=== PATIENT | male | born 1950 | race Caucasian/White ===

== ENCOUNTER 2017-04-05 13:54 | Emergency (ER) | payer BC ==
--- NOTE | 2017-04-05 15:00 | ERPHSYRPT ---
- History of Present Illness Time Seen by Provider: 04/05/17 14:57 Historian: patient Exam Limitations: no limitations Patient Subjective Stated Complaint: Pt states "I have a gallstone and I was going to go to Dr. pierre on friday about it. I have been up since 230 this morning vomiting and having abdominal pain." Triage Nursing Assessment: Pt alert and oriented X 3, skin pwd. Pt grimacing, has general weakness, nausea. no apparent respiratory distress. Physician History: 66-year-old white male arrives with complaint of right upper quadrant pain nausea vomiting symptoms since 2:30 this morning. Patient states he was recently worked up. He is supposed to see Dr. Pierre secondary to gallbladder problems he states he has had a CAT scan and an ultrasound. Past medical history includes COPD, arrhythmia, hypercholesterolemia, high blood pressure, myocardial infarction, rheumatoid arthritis, anxiety, depression , amyloidosis, pacer defibrillator. Past surgical history cardiac catheter, cardiac stent, pacer defibrillator, femoropopliteal bypass Timing/Duration: other (symptoms have been going on for several weeks, however recurred this morning at 2:30 AM) Activities at Onset: none Quality: cramping Abdominal Pain Onset Location: RUQ Severity of Pain-Max: moderate Severity of Pain-Current: moderate Modifying Factors: Improves With: nothing Associated Symptoms: nausea, vomiting, No back, No chest pain, No diaphoresis, No diarrhea, No fever/chills, No fatigue, No headache, No heartburn, No loss of appetite, No neck pain, No rash, No shortness of breath, No syncope, No testicular pain Previous symptoms: same symptoms as today Allergies/Adverse Reactions: cephalexin monohydrate [From Keflex] Allergy (Verified 05/18/13 16:48) Itching miconazole nitrate [From Neosporin AF] Allergy (Verified 05/18/13 16:48) Itching Home Medications: Bumetanide 1 mg [Bumex 1 mg] 1 mg PO UD 05/18/13 [History] Carvedilol 6.25 mg [Coreg 6.25 MG] 6.25 mg PO BID 05/18/13 [History] Lisinopril [Zestril] 2.5 mg PO DAILY 05/18/13 [History] Pantoprazole 40 mg [Protonix 40 mg IV] 40 mg PO DAILY 05/18/13 [History] Potassium Chloride 10 meq PO UD 05/18/13 [History] Aspirin [Aspirin EC] 81 mg PO DAILY 01/31/16 [History] Etanercept [Enbrel Sureclick] 50 mg SQ WEEKLY 01/31/16 [History] Folic Acid 1 mg PO DAILY 01/31/16 [History] Methotrexate Sodium [Methotrexate] 2.5 mg PO WEEKLY 01/31/16 [History] Rivaroxaban [Xarelto] 20 mg PO DAILY 04/05/17 [History] Hx Tetanus, Diphtheria Vaccination/Date Given: Yes Hx Influenza Vaccination/Date Given: Yes Hx Pneumococcal Vaccination/Date Given: Yes Immunizations Up to Date: Yes - Review of Systems Constitutional: No Fever, No Chills Eyes: No Symptoms Ears, Nose, & Throat: No Symptoms Respiratory: No Cough, No Dyspnea Cardiac: No Chest Pain, No Edema, No Syncope Abdominal/Gastrointestinal: Abdominal Pain, Nausea, Vomiting, No Diarrhea, No Constipation, No Hematemesis, No Hematochezia, No Melena, No Dysphagia, No Appetite Changes Genitourinary Symptoms: No Dysuria Musculoskeletal: No Back Pain, No Neck Pain Skin: No Rash Neurological: No Dizziness, No Focal Weakness, No Sensory Changes Psychological: No Symptoms Endocrine: No Symptoms All Other Systems: Reviewed and Negative - Past Medical History Pertinent Past Medical History: Yes Neurological History: No Pertinent History ENT History: No Pertinent History Cardiac History: Arrhythmia, High Cholesterol, Hypertension, Myocardial Infarction ([place]) Respiratory History: COPD, Other Endocrine Medical History: No Pertinent History Musculoskeletal History: Rheumatoid Arthritis GI Medical History: No Pertinent History History: No Pertinent History Psycho-Social History: Anxiety, Depression Male Reproductive Disorders: No Pertinent History Other Medical History: AMALOIDOSIS; DEFIBRILATOR - Past Surgical History Past Surgical History: Yes Neuro Surgical History: No Pertinent History Cardiac: Cardiac Catheterization, Cardiac Stent, Internal Defibrillator Respiratory: No Pertinent History Genitourinary: No Pertinent History Musculoskeletal: Other Male Surgical History: No Pertinent History Other Surgical History: FEM POP BYPASS - Social History Smoking Status: Former smoker Exposure to second hand smoke: No Drug Use: none Patient Lives Alone: No - Nursing Vital Signs Nursing Vital Signs: Initial Vital Signs Temperature 99.4 F 04/05/17 14:07 Pulse Rate 118 H 04/05/17 14:07 Respiratory Rate 20 04/05/17 14:07 Blood Pressure 106/63 04/05/17 14:07 O2 Sat by Pulse Oximetry 95 04/05/17 14:07 Pain Scale Pain Intensity 2 - Physical Exam General Appearance: mild distress Eye Exam: PERRL/EOMI, eyes nml inspection Ears, Nose, Throat Exam: normal ENT inspection, pharynx normal, moist mucous membranes Neck Exam: normal inspection, non-tender, supple, full range of motion Respiratory Exam: normal breath sounds, lungs clear, No respiratory distress Cardiovascular Exam: regular rate/rhythm, normal heart sounds Gastrointestinal/Abdomen Exam: soft, normal bowel sounds, tenderness (right upper quadrant tenderness) Back Exam: normal inspection, normal range of motion, No CVA tenderness, No vertebral tenderness Extremity Exam: normal inspection, normal range of motion, pelvis stable Neurologic Exam: alert, oriented x 3, cooperative, normal mood/affect, nml cerebellar function, sensation nml, No motor deficits Skin Exam: normal color, warm, dry SpO2 Interpretation: normal (95%) SpO2: 95 Oxygen Delivery: Room Air - Course Nursing assessment & vital signs reviewed: Yes EKG Interpreted by Me: RATE (98 bpm), Sinus Rhythm, NORMAL AXIS, Left Bolt Deviation, LAFB, Right Bundle Branch Block, Other (EKG sinus rhythm, 98 bpm, left axis deviation, complete right bundle branch block no acute ST or T wave changes a January 30, 2013) - Radiology Exams Chest X-ray Interpretation: Interpreted by me, Other (no acute disease process noted) Ordered Tests: Active Orders 24 hr Category Date Time Status C Unix Developer STAT Care 04/05/17 16:18 Active EKG-ER Only STAT Care 04/05/17 17:12 Active IV Insertion STAT Care 04/05/17 14:56 Active CHEST 1 VIEW (PORTABLE) Stat Exams 04/05/17 17:13 Taken AMYLASE Stat Lab 04/05/17 14:56 Completed CBC W DIFF Stat Lab 04/05/17 14:56 Completed CMP Stat Lab 04/05/17 14:56 Completed LIPASE Stat Lab 04/05/17 14:56 Completed Manual Differential NC Stat Lab 04/05/17 14:56 Completed UA W/RFX UR CULTURE Stat Lab 04/05/17 14:56 Ordered Medication Summary Generic Name Dose Route Start Last Admin Trade Name Freq PRN Reason Stop Dose Admin Sodium Chloride 1,000 mls @ 150 mls/hr 04/05/17 17:15 04/05/17 17:33 Sodium Chloride 0.9% 1000 Ml IV 05/05/17 17:14 150 mls/hr .Q6H40M JOSE CARLOS Administration Discontinued Medications Generic Name Dose Route Start Last Admin Trade Name Morgan PRN Reason Stop Dose Admin Sodium Chloride 1,000 mls @ 999 mls/hr 04/05/17 14:56 04/05/17 15:12 Sodium Chloride 0.9% 1000 Ml IV 04/05/17 15:56 999 mls/hr .Q1H1M STA Administration Sodium Chloride Confirm 04/05/17 15:07 Sodium Chloride 0.9% 1000 Ml Administered 04/05/17 15:08 Dose 1,000 mls @ ud .ROUTE .STK-MED ONE Sodium Chloride 1,000 mls @ 999 mls/hr 04/05/17 16:19 04/05/17 16:25 Sodium Chloride 0.9% 1000 Ml IV 04/05/17 17:19 999 mls/hr .Q1H1M STA Administration Sodium Chloride Confirm 04/05/17 16:19 Sodium Chloride 0.9% 1000 Ml Administered 04/05/17 16:20 Dose 1,000 mls @ ud .ROUTE .STK-MED ONE Morphine Sulfate 4 mg 04/05/17 14:56 04/05/17 15:12 Morphine Sulfate 4 Mg Inj IV 04/05/17 14:57 4 mg STAT ONE Administration Morphine Sulfate Confirm 04/05/17 15:07 Morphine Sulfate 4 Mg Inj Administered 04/05/17 15:08 Dose 4 mg .ROUTE .STK-MED ONE Ondansetron HCl 4 mg 04/05/17 14:56 04/05/17 15:12 Zofran 4 Mg/2 Ml Vial IV 04/05/17 14:57 4 mg STAT ONE Administration Ondansetron HCl Confirm 04/05/17 15:07 Zofran 4 Mg/2 Ml Vial Administered 04/05/17 15:08 Dose 4 mg .ROUTE .STK-MED ONE Lab/Rad Data: Laboratory Result Diagrams 04/05/17 14:56 04/05/17 14:56 Laboratory Results 04/05/17 04/05/17 Range/Units 14:56 14:56 WBC 13.1 H (4.0-10.5) K/mm3 RBC 4.17 (4.1-5.6) M/mm3 Hgb 13.4 (12.5-18.0) gm/dl Hct 39.2 L (42-50) % MCV 94.0 (78-100) fl MCH 32.1 H (26-32) pg MCHC 34.2 (32-36) g/dl RDW 12.9 (11.5-14.0) % Plt Count 172 (150-450) K/mm3 MPV 10.5 H (6-9.5) fl Segmented Neutrophils 97 H (36.-66.) % Lymphocytes (Manual) 3 L (24-44) % Differential Comment NORMAL Platelet Estimate NORMAL (NORMAL) Sodium 138 (136-145) mEq/L Potassium 3.8 (3.5-5.1) mEq/L Chloride 105 (98-107) mEq/L Carbon Dioxide 22.2 (21-32) mEq/L Anion Gap 14.6 (5-15) MEQ/L BUN 13 (9-20) mg/dL Creatinine 1.35 H (0.55-1.30) mg/dl Estimated GFR 57 ML/MIN Glucose 137 H (70-110) MG/DL Calcium 9.2 (8.5-10.1) mg/dL Total Bilirubin 3.40 H (0.2-1.0) mg/dL AST 400 H (15-37) U/L ALT 532 H (12-78) U/L Alkaline Phosphatase 209 H (46-116) U/L Serum Total Protein 6.4 (6.4-8.2) gm/dL Albumin 3.8 (3.4-5.0) g/dL Amylase 1493 H (25-115) U/L Lipase 81229 H (73-393) U/L - Progress Progress: improved Progress Note: 04/05/17 16:14 This 66-year-old white male with a history of epigastric pain symptoms since 2: 30 this morning. The patient had had of previous gallbladder ultrasound on the of this month which was suspicious for chronic cholecystitis. He also had had a CT of the abdomen which did not well visualize the pancreas approximately 2 days ago. He is complaining of pain in the right upper quadrant that he has had some nausea vomiting. Patient does have a history of COPD arrhythmia hypercholesterolemia high blood pressure myocardial infarction rheumatoid arthritis he has a history of defibrillator. Patient does look to be fairly comfortable patient's vital signs of temp 99 4 pulse 118 respirations 20 blood pressure 106/63, Patient has an amylase of 1493 a lipase of 19,371 Total bilirubin is 3.4 Patient's white count is 13.1 hemoglobin 13.4 hematocrit 39.2 platelets 192 Chemistry sodium 138 potassium 3.8 chloride 105 bicarbonate 22.2 BUN 13 creatinine 1.35 glucose 137/ Was given morphine 4 mg IV also given 1 L of normal saline Will plan on a second liter of normal saline. Patient states that he will get his hospitalized he wants to go where his cardiologists are at Will go ahead and contact [facility] in [place] for transfer. 04/05/17 17:24 I discussed the case with Dr. Bower, and at [facility](Dr. Santos id s the oracle database developer at [facility] patient was accepted to [facility] by Dr. Santos ) Patient has been given to the liters of normal saline he will be switched to IV normal saline at -150 mL per hour. Blood pressure 94/56. - Departure Time of Disposition: 18:58 Departure Disposition: Transfer ([facility]) Clinical Impression: Right upper quadrant pain Pancreatitis Qualifiers: Chronicity: acute Pancreatitis type: other Acute pancreatitis complication: unspecified Qualified Code(s): K85.80 - Other acute pancreatitis without necrosis or infection Condition: Fair Critical Care Time: No Referrals: JARON PIERRE [Primary Care Provider] -
[2017-04-05] MEDS ORDERED: MORPHINE SULFATE 4 MG INJ ONE (15:07)
[2017-04-05] MEDS ORDERED: Sodium Chloride 0.9% 1000 ML 1,000 ML ONE ×3 (15:07→17:32)
[2017-04-05] MEDS ORDERED: Zofran 4 MG/2 ML VIAL ONE (15:07)
[2017-04-05 15:09] LABS: Granulocyte Absolute (ANC) 12.43 (1.4-6.9); Hematocrit 39.2 % (42-50); Hemoglobin 13.4 gm/dl (12.5-18.0); Mean Corpuscular Hemoglobin 32.1 pg (26-32); Mean Corpuscular Hgb Concent. 34.2 g/dl (32-36); Mean Platelet Volume 10.5 fl (6-9.5); Platelet Count 172 K/mm3 (150-450); Red Blood Count 4.17 M/mm3 (4.1-5.6); Red Cell Distribution Width 12.9 % (11.5-14.0); White Blood Count 13.1 K/mm3 (4.0-10.5)
[2017-04-05] MEDS: Sodium Chloride 0.9% 1000 ML 1,000 ML IV STA ×2 (15:12→16:25)
[2017-04-05] MEDS: MORPHINE SULFATE 4 MG INJ IV ONE (15:12)
[2017-04-05] MEDS: Zofran 4 MG/2 ML VIAL IV ONE (15:12)
[2017-04-05 15:20] LABS: ALBUMIN 3.8 g/dL (3.4-5.0); ANION GAP 14.6 MEQ/L (5-15); BILIRUBIN,TOTAL 3.4 mg/dL (0.2-1.0); Calcium 9.2 mg/dL (8.5-10.1); Carbon Dioxide 22.2 mEq/L (21-32); Creatinine 1 1.35 mg/dl (0.55-1.30); Potassium 3.8 mEq/L (3.5-5.1); Total Protein 6.4 gm/dL (6.4-8.2)
[2017-04-05 15:51] LABS: Lymphocytes 3 % (24-44); Neutrophils 97 % (36.-66.); Platelet Estimate NORMAL (NORMAL); Total Cells Counted 100
[2017-04-05] MEDS: Sodium Chloride 0.9% 1000 ML 1,000 ML IV SCH (17:33)
[2017-04-05 18:46] VITALS: BP 93/59; PULSE 94
[2017-04-05 18:59] VITALS: O2SAT 95
[2017-04-05 19:08] LABS: Appearance CLEAR (CLEAR); Leukocyte Esterase NEGATIVE (NEGATIVE); Nitrite NEGATIVE (NEGATIVE); Protein,Urine Dip NEGATIVE (Negative)
[2017-04-05 19:09] LABS: Bilirubin NEGATIVE (NEGATIVE); Blood NEGATIVE Ery/ul (0-5); Glucose NEGATIVE (NEGATIVE); Ketones NEGATIVE (NEGATIVE); Urobilinogen NORMAL mg/dL (0-1)
--- NOTE | 2017-04-05 20:40 | XRAY ---
Indication: Weakness. Comparison: March 28, 2017. Portable chest remains clear. Heart and mediastinal structures within normal limits again with left-sided AICD. No new/acute findings. Impression: Stable nonacute chest.
== END 2017-04-05 19:02 | disposition short-term general hospital (02) ==
LOC: ED 13:54
DX: R10.11 Right upper quadrant pain (principal); K85.80 Other acute pancreatitis without necrosis or infection; J44.9 Chronic obstructive pulmonary disease, unspecified; E78.00 Pure hypercholesterolemia, unspecified; I10 Essential (primary) hypertension; I25.2 Old myocardial infarction; M06.9 Rheumatoid arthritis, unspecified; F41.8 Other specified anxiety disorders; Z79.01 Long term (current) use of anticoagulants; Z79.899 Other long term (current) drug therapy
CPT/HCPCS: 36000; 36415; 71045; 80053; 81002; 82150; 83690; 85025; 93005; 93041; 96360; 96361; 96374; 96375; 99285; J2270; J2405

== ENCOUNTER 2017-05-15 15:52 | Inpatient (IN) | payer MEDICARE ==
--- NOTE | 2017-05-15 17:09 | XRAY ---
Indication: Fever. Comparison: April 05, 2017. PA/lateral chest hyperinflated and clear. Heart is not enlarged with stable left-sided AICD. Bony thorax intact again with mild degenerative changes. Impression: Nonacute hyperinflated chest.
--- NOTE | 2017-05-15 17:21 | ERPHSYRPT ---
- History of Present Illness Time Seen by Provider: 05/15/17 16:12 Source: patient, family () Patient Subjective Stated Complaint: pt stated that his had explained to his valery doctor that he was chilling and didn't feel well-states that his valery doctor had said that he was full of infection and needed to come here so we could call his valery doctor-pt had an upper scope done on -pt denies pain -denies n/v/d-unsure of fever-denies dizziness or loc-denies dizziness-denies loss of appetite or fluid intake Triage Nursing Assessment: pt pale warm and [id number] talkative with no resp distress noted-abd soft and nontender to palp-pt would not allow further physical assessment-stated that he didn't want testing he wanted his valery doctor called Physician History: CC: malaise Hx: 67 y/o patient of Dr Pierre and Dr Chavez ([phone]). He had gallstone pancreatitis in March. Went to [facility]. Had ERCP with stent placement and subsequent cholecystectomy. He went last week on to have pancreatitic stent removed and had esophageal biopsy. He has not felt well since the stent removal. He has low grade fever to 100.5. He has malaise. Some cough. No vomiting or diarrhea. He spoke to office today and they sent him here for evaluation of infection. also states BP has been low. He had BMP earlier today as scheduled thru cardiology. He started entresto recently. Allergies/Adverse Reactions: cephalexin monohydrate [From Keflex] Allergy (Verified 05/15/17 16:31) Itching miconazole nitrate [From Neosporin AF] Allergy (Verified 05/15/17 16:31) Itching Home Medications: Bumetanide 1 mg [Bumex 1 mg] 1 mg PO UD 05/18/13 [History] Carvedilol 6.25 mg [Coreg 6.25 MG] 6.25 mg PO BID 05/18/13 [History] Lisinopril [Zestril] 2.5 mg PO DAILY 05/18/13 [History] Pantoprazole 40 mg [Protonix 40 mg IV] 40 mg PO DAILY 05/18/13 [History] Potassium Chloride 10 meq PO UD 05/18/13 [History] Aspirin [Aspirin EC] 81 mg PO DAILY 01/31/16 [History] Etanercept [Enbrel Sureclick] 50 mg SQ WEEKLY 01/31/16 [History] Folic Acid 1 mg PO DAILY 01/31/16 [History] Methotrexate Sodium [Methotrexate] 2.5 mg PO WEEKLY 01/31/16 [History] Rivaroxaban [Xarelto] 20 mg PO DAILY 04/05/17 [History] Hx Tetanus, Diphtheria Vaccination/Date Given: Yes Hx Influenza Vaccination/Date Given: Yes Hx Pneumococcal Vaccination/Date Given: Yes Immunizations Up to Date: Yes - Review of Systems Constitutional: Fever, Chills, Fatigue, Malaise Eyes: No Symptoms Ears, Nose, & Throat: No Symptoms Respiratory: Cough, No Dyspnea Cardiac: No Chest Pain Abdominal/Gastrointestinal: No Abdominal Pain, No Nausea, No Vomiting, No Diarrhea Genitourinary Symptoms: No Dysuria Skin: No Rash Neurological: No Headache All Other Systems: Reviewed and Negative - Past Medical History Pertinent Past Medical History: Yes Neurological History: No Pertinent History ENT History: No Pertinent History Cardiac History: Arrhythmia, High Cholesterol, Hypertension, Myocardial Infarction ([place]) Respiratory History: COPD, Other Endocrine Medical History: No Pertinent History Musculoskeletal History: Rheumatoid Arthritis GI Medical History: Pancreatitis History: No Pertinent History Psycho-Social History: Anxiety, Depression Male Reproductive Disorders: No Pertinent History Other Medical History: Amyloid. AICD. RA on methrotrexate. CAD post stenting - Past Surgical History Past Surgical History: Yes Neuro Surgical History: No Pertinent History Cardiac: Cardiac Catheterization, Cardiac Stent, Internal Defibrillator Respiratory: No Pertinent History Genitourinary: No Pertinent History Musculoskeletal: Other Male Surgical History: No Pertinent History Other Surgical History: FEM POP BYPASS - Social History Smoking Status: Former smoker Exposure to second hand smoke: No Drug Use: none Patient Lives Alone: No - Nursing Vital Signs Nursing Vital Signs: Initial Vital Signs Temperature 98.9 F 05/15/17 16:11 Pulse Rate 89 05/15/17 16:11 Respiratory Rate 18 05/15/17 16:11 Blood Pressure 104/65 05/15/17 16:11 O2 Sat by Pulse Oximetry 97 05/15/17 16:11 Pain Scale Pain Intensity 0 - Physical Exam General Appearance: alert Eye Exam: PERRL/EOMI Ears, Nose, Throat Exam: normal ENT inspection, dry mucous membranes Neck Exam: normal inspection, non-tender, supple Respiratory Exam: normal breath sounds Cardiovascular Exam: regular rate/rhythm, No murmur Gastrointestinal/Abdomen Exam: soft, No tenderness, No distention, No mass, No guarding Male Genitalia Exam: normal genitalia Extremity Exam: normal inspection, normal range of motion Neurologic Exam: alert, oriented x 3, cooperative, medical delivery driver II-XII nml as tested, sensation nml, No motor deficits Skin Exam: warm, dry, No rash SpO2 Interpretation: normal SpO2: 97 Oxygen Delivery: Room Air - Course Nursing assessment & vital signs reviewed: Yes - Radiology Exams cxr X-ray Interpretation: Teleradiologist Report, Negative Ordered Tests: Active Orders 24 hr Category Date Time Status Clean Catch Urine Specimen STAT Care 05/15/17 16:45 Active IV Insertion STAT Care 05/15/17 16:45 Active Rectal Temperature STAT Care 05/15/17 16:46 Active CHEST 2 VIEWS (PA AND LAT) Stat Exams 05/15/17 16:46 Completed BLOOD CULTURE Stat Lab 05/15/17 17:13 Ordered CBC W DIFF Stat Lab 05/15/17 17:13 Completed CULTURE,URINE Stat Lab 05/15/17 18:30 Received Hepatic Function Panel Stat Lab 05/15/17 17:13 Completed LIPASE Stat Lab 05/15/17 17:13 Completed Lactic Acid Stat Lab 05/15/17 17:18 Completed UA W/ MICROSCOPIC Stat Lab 05/15/17 18:30 Completed Medication Summary Generic Name Dose Route Start Last Admin Trade Name Freq PRN Reason Stop Dose Admin Sodium Chloride 1,000 mls @ 150 mls/hr 05/15/17 17:30 05/15/17 19:32 Sodium Chloride 0.9% 1000 Ml IV 06/14/17 17:29 150 mls/hr .Q6H40M JOSE CARLOS Administration Metronidazole 500 mg in 100 mls @ 200 mls/hr 05/15/17 19:34 Flagyl 500 Mg Ivpb IV 05/15/17 20:03 STAT STA Levofloxacin/Dextrose 750 mg in 150 mls @ 100 mls/hr 05/15/17 19:34 Levofloxacin 750mg/150ml D5w IV 05/15/17 21:03 STAT STA Discontinued Medications Generic Name Dose Route Start Last Admin Trade Name Freq PRN Reason Stop Dose Admin Acetaminophen 650 mg 05/15/17 19:28 05/15/17 19:31 Tylenol 325 Mg PO 05/15/17 19:29 650 mg STAT ONE Administration Acetaminophen Confirm 05/15/17 19:30 Tylenol 325 Mg Administered 05/15/17 19:31 Dose 650 mg .ROUTE .STK-MED ONE Sodium Chloride Confirm 05/15/17 17:30 Sodium Chloride 0.9% 1000 Ml Administered 05/15/17 17:31 Dose 1,000 mls @ ud .ROUTE .STK-MED ONE Sodium Chloride Confirm 05/15/17 19:30 Sodium Chloride 0.9% 1000 Ml Administered 05/15/17 19:31 Dose 1,000 mls @ ud .ROUTE .STK-MED ONE Lab/Rad Data: Laboratory Result Diagrams 05/15/17 17:13 Laboratory Results 05/15/17 05/15/17 05/15/17 Range/Units 18:30 17:18 17:13 WBC (4.0-10.5) K/mm3 RBC (4.1-5.6) M/mm3 Hgb (12.5-18.0) gm/dl Hct (42-50) % MCV (78-100) fl MCH (26-32) pg MCHC (32-36) g/dl RDW (11.5-14.0) % Plt Count (150-450) K/mm3 MPV (6-9.5) fl Gran % (36.0-66.0) % Lymphocytes % (24.0-44.0) % Monocytes % (0.0-12.0) % Eosinophils % (0.00-5.0) % Basophils % (0.0-0.4) % Basophils # (0-0.4) Lactic Acid 1.1 (0.4-2.0) Total Bilirubin 1.50 H (0.2-1.3) mg/d? Direct Bilirubin 0.4 (0.0-0.4) MG/DL AST 34 (17-59) U/L ALT 38 (0-50) U/L Alkaline Phosphatase 116 (38-126) U/L Serum Total Protein 6.3 (6.3-8.2) mg/dl Albumin 3.6 (3.5-5.0) g/dl Lipase 52 (23-300) U/L Ur Collection Type CCMS Urine Color YELLOW (YELLOW) Urine Appearance CLEAR (CLEAR) Urine pH 5.0 (5-6) Ur Specific [place] 1.020 (1.005-1.025) Urine Protein TRACE (Negative) Urine Ketones NEGATIVE (NEGATIVE) Urine Blood TRACE LYSED (0-5) Bandar/ul Urine Nitrite NEGATIVE (NEGATIVE) Urine Bilirubin NEGATIVE (NEGATIVE) Urine Urobilinogen NORMAL (0-1) mg/dL Ur Leukocyte Esterase NEGATIVE (NEGATIVE) Urine Microscopic RBC 0-2 (0-2) /HPF Urine Microscopic WBC 0-2 (0-5) /HPF Ur Epithelial Cells FEW (FEW) /HPF Hyaline Casts 0-2 (0-2) /LPF Urine Culture Reflexed YES (NO) Urine Glucose NEGATIVE (NEGATIVE) mg/dL Specimen Received [id number] 05/15/17 Range/Units 17:13 WBC 8.2 (4.0-10.5) K/mm3 RBC 3.56 L (4.1-5.6) M/mm3 Hgb 11.5 L (12.5-18.0) gm/dl Hct 33.2 L (42-50) % MCV 93.3 (78-100) fl MCH 32.3 H (26-32) pg MCHC 34.6 (32-36) g/dl RDW 14.0 (11.5-14.0) % Plt Count 119 L (150-450) K/mm3 MPV 10.6 H (6-9.5) fl Gran % 71.2 H (36.0-66.0) % Lymphocytes % 12.5 L (24.0-44.0) % Monocytes % 15.7 H (0.0-12.0) % Eosinophils % 0.5 (0.00-5.0) % Basophils % 0.1 (0.0-0.4) % Basophils # 0.01 (0-0.4) Lactic Acid (0.4-2.0) Total Bilirubin (0.2-1.3) mg/d? Direct Bilirubin (0.0-0.4) MG/DL AST (17-59) U/L ALT (0-50) U/L Alkaline Phosphatase (38-126) U/L Serum Total Protein (6.3-8.2) mg/dl Albumin (3.5-5.0) g/dl Lipase (23-300) U/L Ur Collection Type Urine Color (YELLOW) Urine Appearance (CLEAR) Urine pH (5-6) Ur Specific [place] (1.005-1.025) Urine Protein (Negative) Urine Ketones (NEGATIVE) Urine Blood (0-5) Bandar/ul Urine Nitrite (NEGATIVE) Urine Bilirubin (NEGATIVE) Urine Urobilinogen (0-1) mg/dL Ur Leukocyte Esterase (NEGATIVE) Urine Microscopic RBC (0-2) /HPF Urine Microscopic WBC (0-5) /HPF Ur Epithelial Cells (FEW) /HPF Hyaline Casts (0-2) /LPF Urine Culture Reflexed (NO) Urine Glucose (NEGATIVE) mg/dL Specimen Received - Progress Progress Note: 05/15/17 19:16 Pt is febrile. He feels better after IVF 1 L NS. BP low side. BMP earlier today reviewed. Will page Dr Reyes for his recommendations. 05/15/17 19:[address] Reyes who advised admit for IV abtx pending cultures. Spoke to Dr Abdiaziz Pierre and will place on levaquin and flagyl as he is allergic to keflex. Will also send flu panel. Discussed with : George Will see patient in: hospital (observation) Counseled pt/family regarding: lab results, diagnosis, need for follow-up, rad results - Departure Time of Disposition: 19:36 Departure Disposition: Observation Clinical Impression: Fever, Hyponatremia Condition: Fair Critical Care Time: No Referrals: JARON PIERRE [Primary Care Provider] -
[2017-05-15] MEDS ORDERED: Sodium Chloride 0.9% 1000 ML 1,000 ML ONE ×2 (17:30→19:30)
[2017-05-15] MEDS: Sodium Chloride 0.9% 1000 ML 1,000 ML IV SCH ×2 (17:42→19:32)
[2017-05-15 17:44] LABS: BASOPHIL % 0.1 % (0.0-0.4); Basophil (Absolute #) 0.01 (0-0.4); Eosinophil % 0.5 % (0.00-5.0); Eosinophil (Absolute #) 0.04 (0-0.5); Granulocyte Absolute (ANC) 5.82 (1.4-6.9); Granulocytes % 71.2 % (36.0-66.0); Hematocrit 33.2 % (42-50); Hemoglobin 11.5 gm/dl (12.5-18.0); Lymphocyte (Absolute #) 1.02 (1.0-4.6); Lymphocytes % 12.5 % (24.0-44.0); Mean Cell Volume 93.3 fl (78-100); Mean Corpuscular Hemoglobin 32.3 pg (26-32); Mean Corpuscular Hgb Concent. 34.6 g/dl (32-36); Mean Platelet Volume 10.6 fl (6-9.5); Monocyte (Absolute #) 1.28 (0.0-1.3); Monocytes % 15.7 % (0.0-12.0); Platelet Count 119 K/mm3 (150-450); Red Blood Count 3.56 M/mm3 (4.1-5.6); White Blood Count 8.2 K/mm3 (4.0-10.5)
[2017-05-15 17:53] LABS: ALBUMIN 3.6 g/dl (3.5-5.0); BILIRUBIN,TOTAL 1.5 mg/d? (0.2-1.3); Direct Bilirubin 0.4 MG/DL (0.0-0.4); Total Protein 6.3 mg/dl (6.3-8.2)
[2017-05-15 18:55] LABS: Appearance CLEAR (CLEAR); Bilirubin NEGATIVE (NEGATIVE); Glucose NEGATIVE (NEGATIVE); Ketones NEGATIVE (NEGATIVE); Leukocyte Esterase NEGATIVE (NEGATIVE); Nitrite NEGATIVE (NEGATIVE); Protein,Urine Dip TRACE (Negative); Urobilinogen NORMAL mg/dL (0-1)
[2017-05-15 18:56] LABS: Blood TRACE LYSED Ery/ul (0-5)
[2017-05-15 19:02] LABS: Epithelial Cells FEW /HPF (FEW); Hyaline Casts 0-2 /LPF (0-2); WBC 0-2 /HPF (0-5)
[2017-05-15] MEDS ORDERED: TYLENOL 325 MG PO ONE (19:28)
[2017-05-15] MEDS ORDERED: TYLENOL 325 MG ONE (19:30)
[2017-05-15] MEDS ORDERED: LEVOFLOXACIN 750MG/150ML D5W 750 MG/150 ML BAG IV STA (19:34)
[2017-05-15] MEDS ORDERED: FLAGYL 500 MG IVPB 500 MG/100 ML BAG IV STA (19:34)
[2017-05-15] MEDS ORDERED: FLAGYL 500 MG IVPB 500 MG/100 ML BAG IV ONE (19:37)
[2017-05-15] MEDS ORDERED: LEVOFLOXACIN 750MG/150ML D5W 750 MG/150 ML BAG IV ONE (20:08)
[2017-05-15] MEDS ORDERED: TYLENOL 325 MG PO PRN (20:22)
[2017-05-15] MEDS: Pepcid 20 MG VIAL IV SCH (21:52)
[2017-05-15] MEDS: Ambien 5 MG Tablet PO SCH (22:16)
[2017-05-15] MEDS: FLAGYL 500 MG IVPB 500 MG/100 ML BAG IV SCH (23:53)
[2017-05-16] MEDS: Sodium Chloride 0.9% 1000 ML 1,000 ML IV SCH ×2 (05:09→17:08)
[2017-05-16] MEDS: FLAGYL 500 MG IVPB 500 MG/100 ML BAG IV SCH ×4 (05:26→23:43)
[2017-05-16 05:33] LABS: BASOPHIL % 0.1 % (0.0-0.4); Basophil (Absolute #) 0.01 (0-0.4); Eosinophil % 0.4 % (0.00-5.0); Eosinophil (Absolute #) 0.03 (0-0.5); Granulocytes % 72.3 % (36.0-66.0); Hematocrit 30.3 % (42-50); Hemoglobin 10.3 gm/dl (12.5-18.0); Lymphocyte (Absolute #) 0.63 (1.0-4.6); Lymphocytes % 9.1 % (24.0-44.0); Mean Cell Volume 93.2 fl (78-100); Mean Platelet Volume 10.7 fl (6-9.5); Monocyte (Absolute #) 1.25 (0.0-1.3); Monocytes % 18.1 % (0.0-12.0); Platelet Count 98 K/mm3 (150-450); Red Blood Count 3.25 M/mm3 (4.1-5.6); Red Cell Distribution Width 13.9 % (11.5-14.0); White Blood Count 6.9 K/mm3 (4.0-10.5)
[2017-05-16 05:34] LABS: Mean Corpuscular Hemoglobin 31.6 pg (26-32)
[2017-05-16 06:04] LABS: ALBUMIN 2.8 g/dl (3.5-5.0); ALKALINE PHOSPHATASE 103 U/L (38-126); BLOOD UREA NITROGEN 11 mg/dl (9-20); CHLORIDE 99 mEq/L (98-107); Calcium 8.1 mg/dL (8.4-10.2); Carbon Dioxide 22 mmol/L (22-30); Creatinine 1 0.75 mg/dl (0.66-1.25); Glucose 110 mg/dL (74-106); SGOT/AST 28 U/L (17-59); SGPT/ALT 32 U/L (0-50); SODIUM 129 mmol/L (137-145); Total Protein 5.4 mg/dl (6.3-8.2)
[2017-05-16 06:29] LABS: Slide Review 1 YES
--- NOTE | 2017-05-16 09:55 | HP ---
HISTORY OF PRESENT ILLNESS: This is a 67 year-old patient of mine who presented to the emergency department yesterday afternoon. He reports that this past he had a stent removed by ERCP that had been placed at . He states he has felt bad since this Friday which would have been 05/09/2017. His legs felt like rubber and he was fatigued. He was unable to go to his granddaughter's ball game Friday but did go Friday. He reports Friday he picked up sticks in his yard and worked hard and had some chills. He reports a fever to 101F on Friday. I saw him in the clinic on Friday but he did not mention having had a fever. He just said his blood pressure had been running low but he had recently been started on Entresto and he felt fatigued. His called the doctor who did the ERCP on and they told her to bring him to the emergency department for fluids and antibiotic and so he was admitted through the emergency department last night. He reports that he feels better this morning. He was able to eat his breakfast although he has had decreased oral intake for the past week. He states he had some chills last night and required four blankets but better this a.m. REVIEW OF SYSTEMS: He feels like he will throw up if he eats anything. He reports his last stool was last night and was solid. He denied any loose stools. He denies any blood in his stool. He denies any abdominal pain. He reports his cough has been his regular cough since he first had his ERCP and was more hoarse since that happened. They report that during the ERCP he also had esophagus dilated and a biopsy taken as well as this stent taken out. He had a headache when he stood up yesterday but is better today. He was able to walk to the bathroom without any dizziness. They note that his Xarelto had been stopped only one to two days before the ERCP and was supposed to be stopped five days before ERCP but the doctor who did the ERCP knew this and he restarted it right afterwards. PAST MEDICAL HISTORY: Coronary artery disease with myocardial infarction in 2000. He sees Dr. Sosa. History of ischemic congestive cardiomyopathy. He has ICD placed. 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 Benson for. Amyloid of the skin. Gallstone, pancreatitis March 2017. Bilateral herpes keratitis early 2017. PAST SURGICAL HISTORY: Colonoscopy 2016 with diverticulosis and two polyps. Dr. Ireland did this and told him to repeat it in ten years. He had surgery for blockage in his leg. Cholecystectomy 04/09/2017. Liver biopsy 04/09/2017. He has a defibrillator and heart stent. MEDICATIONS: Aspirin 81 mg p.o. daily, Atorvastatin 40 mg daily, Bumex 1 mg every other day, carvedilol 12.5 mg p.o. b.i.d., etanercept 50 mg subcutaneously weekly, folic acid 1 tablet p.o. daily, methotrexate 2.5 mg tablet 8 tablets weekly on , pantoprazole 40 mg p.o. daily, potassium chloride 10 mEq daily, Xarelto 20 mg daily, Entresto 24 mg/26 mg 1 tablet p.o. b.i.d., Viagra as needed. Spironolactone 25 mg p.o. daily. ALLERGIES: CEPHALEXIN, MICONAZOLE. SOCIAL HISTORY: He quit smoking 01/16/2011. He is and lives with his spouse. He occasionally drinks alcohol. FAMILY HISTORY: His mother had rheumatoid arthritis and when she was 70. His father had myocardial infarction and at 59. PHYSICAL EXAMINATION: VITAL SIGNS: Temperature current 98.5F, temperature max 101.9F, heart rate 64 to 92, respiratory rate 16 to 20, blood pressure 95 to 116 over 55 to 65, weight 81.2 kg. Oxygen saturation 95 to 97% on room air. GENERAL: The patient is sitting up in bed in no acute distress. His daughter is at the bedside. CVS: He has an irregular-irregular rhythm. No murmurs, gallops or rubs are appreciated. CHEST: Clear to auscultation bilaterally. Equal breath sounds. ABDOMEN: Soft, nontender, nondistended with normal bowel sounds. EXTREMITIES: No clubbing, cyanosis or edema. He has +2 radial pulses bilaterally. SKIN: Warm, dry and intact. LABORATORY DATA AND TESTS: CBC his white blood cell count was 8,200 on admission and 6,900 this morning, hemoglobin 10.3. Sodium 129, bilirubin 1.4, total protein 5.4. UA was negative. He has a urine culture and blood culture in lab. He had slide review that stated the platelets appeared decreased. His PLT count was 98,000. His blood cultures on the gram stain said that they saw gram-positive clare. There is no ID or sensitivity on this culture. ASSESSMENT AND PLAN: 1) BACTEREMIA: Will continue with Levaquin and metronidazole. Continue monitoring him closely. I discussed this with the family that he should at least stay for 48 hours of IV antibiotics if not longer. 2) HISTORY OF CONGESTIVE HEART FAILURE. His blood pressure is currently at the low end of normal. 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 Will continue with Xarelto. 3) HISTORY OF ATRIAL FIBRILLATION: Management as above. 4) RECENT ERCP STENT REMOVED: Will continue with antibiotic. 5) WEIGHT LOSS: The family reports significant weight loss over the past year. We were trying to schedule at CT scan of his chest for screening for lung cancer as an outpatient but he has had these other more serious medical problems at this time. He has had a recent colonoscopy. I will try to obtain records from his doctors at [facility] about his recent liver biopsy and report of his biopsy of his stomach when he had the scope done recently. 6) DEEP VENOUS THROMBOSIS PROPHYLAXIS: He is already on Xarelto and will use FELA yoon.
[2017-05-16] MEDS ORDERED: LIPITOR 40MG PO SCH (10:00)
[2017-05-16] MEDS ORDERED: NON-FORMULARY ITEM (Potassium Chloride [Potassium Chloride] 10 MEQ) PO SCH (10:00)
[2017-05-16] MEDS ORDERED: PROTONIX 40 MG IV IV SCH (10:00)
[2017-05-16] MEDS: Protonix 40MG Tablet PO SCH (10:12)
[2017-05-16] MEDS: ZOCOR 20MG PO SCH (10:12)
[2017-05-16] MEDS: ECOTRIN 81 MG PO SCH (10:12)
[2017-05-16 10:13] LABS: INFLUENZA A NEGATIVE (NEGATIVE); INFLUENZA B NEGATIVE (NEGATIVE); RESPIRATORY SYNCTIAL VIRUS NEGATIVE (Negative)
[2017-05-16] MEDS: FOLATE 1 MG PO SCH (10:13)
[2017-05-16] MEDS: XARELTO 10 MG TABLET PO SCH (10:13)
[2017-05-16] MEDS: Klor Con 10 MEQ PO SCH (10:13)
[2017-05-16] MEDS: Pepcid 20 MG VIAL IV SCH ×2 (10:14→21:54)
[2017-05-16] MEDS: Nystatin SUSPENSION 60 ML PO SCH ×4 (10:14→21:49)
[2017-05-16] MEDS: Ambien 5 MG Tablet PO SCH (21:47)
[2017-05-16] MEDS: LEVOFLOXACIN 750MG/150ML D5W 750 MG/150 ML BAG IV SCH (21:47)
[2017-05-17 05:43] LABS: Basophil (Absolute #) 0 (0-0.4); Eosinophil % 0.8 % (0.00-5.0); Eosinophil (Absolute #) 0.05 (0-0.5); Granulocyte Absolute (ANC) 4.19 (1.4-6.9); Granulocytes % 67.2 % (36.0-66.0); Hematocrit 30.2 % (42-50); Hemoglobin 10.2 gm/dl (12.5-18.0); Lymphocyte (Absolute #) 0.92 (1.0-4.6); Lymphocytes % 14.8 % (24.0-44.0); Mean Cell Volume 94.4 fl (78-100); Mean Corpuscular Hgb Concent. 33.8 g/dl (32-36); Mean Platelet Volume 10.7 fl (6-9.5); Monocyte (Absolute #) 1.07 (0.0-1.3); Monocytes % 17.2 % (0.0-12.0); Platelet Count 100 K/mm3 (150-450); White Blood Count 6.2 K/mm3 (4.0-10.5)
[2017-05-17 05:46] LABS: Mean Corpuscular Hemoglobin 31.8 pg (26-32)
[2017-05-17] MEDS: FLAGYL 500 MG IVPB 500 MG/100 ML BAG IV SCH ×4 (05:52→23:41)
[2017-05-17] MEDS: Sodium Chloride 0.9% 1000 ML 1,000 ML IV SCH ×2 (05:55→17:26)
[2017-05-17 06:15] LABS: Iron 48 ug/dL (49-181)
[2017-05-17 06:17] LABS: ALBUMIN 2.9 g/dl (3.5-5.0); ALKALINE PHOSPHATASE 93 U/L (38-126); ANION GAP 13.8 MEQ/L (5-15); BLOOD UREA NITROGEN 6 mg/dl (9-20); CHLORIDE 101 mEq/L (98-107); Calcium 8.5 mg/dL (8.4-10.2); Carbon Dioxide 25 mmol/L (22-30); Creatinine 1 0.79 mg/dl (0.66-1.25); Glucose 107 mg/dL (74-106); Potassium 4.6 mmol/L (3.5-5.1); SGOT/AST 23 U/L (17-59); SGPT/ALT 29 U/L (0-50); SODIUM 136 mmol/L (137-145); Total Protein 5.5 mg/dl (6.3-8.2)
[2017-05-17 06:25] LABS: Iron Saturation 24 % (20-39); TIBC 202 ug/dl (261-497)
--- NOTE | 2017-05-17 08:32 | PCM.NOTE ---
Date and Time: 05/17/17828 Subjective Assessment: patient feels well today, no pain. denies nausea or vomiting. he feels weak but this is his only complaint. had low grade fever yesterday at 16:00 Objective Exam General Appearance: no apparent distress, alert Skin Exam: normal color, warm, dry Respiratory Exam: normal breath sounds, lungs clear, No respiratory distress Cardiovascular Exam: regular rate/rhythm, normal heart sounds Gastrointestinal/Abdomen Exam: soft, No tenderness, No mass Extremity Exam: normal inspection, normal range of motion OBJECTIVE DATA Vital Signs: Vital Signs - 24 hr Temp Pulse Resp BP Pulse Ox 05/17/17 07:19 98.2 F 78 18 109/60 94 L 05/17/17 04:00 20 05/17/17 03:39 97.9 F 80 19 113/63 95 05/17/17 00:00 98.7 F 87 16 112/62 93 L 05/16/17 20:00 98.5 F 87 18 110/63 98 05/16/17 16:00 100.4 F 93 H 18 118/68 96 05/16/17 11:37 98.1 F 89 18 110/63 97 Pain Assessment - Last Documented Pain Intensity 0 Pain Scale Used 0-10 Pain Scale Intake and Output: Intake & Output 05/14/17 05/15/17 05/16/17 05/17/17 11:59 11:59 11:59 11:59 Intake Total 3804 Output Total 1700 Balance 2104 Weight 80.1 kg Lab Results: Lab Results-Last 24 Hours 05/17/17 05/17/17 05/17/17 Range/Units 05:34 05:34 05:34 WBC 6.2 (4.0-10.5) K/mm3 RBC 3.20 L (4.1-5.6) M/mm3 Hgb 10.2 L (12.5-18.0) gm/dl Hct 30.2 L (42-50) % MCV 94.4 (78-100) fl MCH 31.8 (26-32) pg MCHC 33.8 (32-36) g/dl RDW 14.0 (11.5-14.0) % Plt Count 100 L (150-450) K/mm3 MPV 10.7 H (6-9.5) fl Gran % 67.2 H (36.0-66.0) % Lymphocytes % 14.8 L (24.0-44.0) % Monocytes % 17.2 H (0.0-12.0) % Eosinophils % 0.8 (0.00-5.0) % Basophils % 0.0 (0.0-0.4) % Basophils # 0 (0-0.4) Sodium 136 L (137-145) mmol/L Potassium 4.6 (3.5-5.1) mmol/L Chloride 101 (98-107) mEq/L Carbon Dioxide 25 (22-30) mmol/L Anion Gap 13.8 (5-15) MEQ/L BUN 6 L (9-20) mg/dl Creatinine 0.79 (0.66-1.25) mg/dl Estimated GFR > 60 ML/MIN Glucose 107 H (74-106) mg/dL Calcium 8.5 (8.4-10.2) mg/dL Iron 48 L (49-181) ug/dL TIBC 202 L (261-497) ug/dl Iron Saturation 24 (20-39) % Total Bilirubin 1.10 (0.2-1.3) mg/d? AST 23 (17-59) U/L ALT 29 (0-50) U/L Alkaline Phosphatase 93 (38-126) U/L Serum Total Protein 5.5 L (6.3-8.2) mg/dl Albumin 2.9 L (3.5-5.0) g/dl Assessment/Plan (1) Bacteremia Current Visit: No Status: Acute Assessment & Plan: GNR, hx of recent pancreatic duct stent. currently on Levaquin and Flagyl, awaiting blood culture results. Code(s): R78.81 - BACTEREMIA (2) Fever Current Visit: Yes Status: Acute Code(s): R50.9 - FEVER, UNSPECIFIED
[2017-05-17] MEDS: ECOTRIN 81 MG PO SCH (10:05)
[2017-05-17] MEDS: FOLATE 1 MG PO SCH (10:06)
[2017-05-17] MEDS: XARELTO 10 MG TABLET PO SCH (10:07)
[2017-05-17] MEDS: Nystatin SUSPENSION 60 ML PO SCH ×4 (10:07→21:38)
[2017-05-17] MEDS: Protonix 40MG Tablet PO SCH (10:07)
[2017-05-17] MEDS: Pepcid 20 MG VIAL IV SCH ×2 (10:07→21:37)
[2017-05-17] MEDS: ZOCOR 20MG PO SCH (10:08)
[2017-05-17] MEDS: LEVOFLOXACIN 750MG/150ML D5W 750 MG/150 ML BAG IV SCH (21:44)
[2017-05-17] MEDS: Ambien 5 MG Tablet PO SCH (21:45)
[2017-05-18] MEDS: FLAGYL 500 MG IVPB 500 MG/100 ML BAG IV SCH (05:53)
[2017-05-18] MEDS: Sodium Chloride 0.9% 1000 ML 1,000 ML IV SCH (05:55)
[2017-05-18 06:02] LABS: BASOPHIL % 0.3 % (0.0-0.4); Basophil (Absolute #) 0.02 (0-0.4); Eosinophil % 1.4 % (0.00-5.0); Eosinophil (Absolute #) 0.08 (0-0.5); Granulocytes % 68.7 % (36.0-66.0); Hematocrit 29.6 % (42-50); Hemoglobin 9.9 gm/dl (12.5-18.0); Lymphocyte (Absolute #) 0.97 (1.0-4.6); Lymphocytes % 16.6 % (24.0-44.0); Mean Cell Volume 94.9 fl (78-100); Mean Corpuscular Hemoglobin 31.7 pg (26-32); Mean Corpuscular Hgb Concent. 33.4 g/dl (32-36); Mean Platelet Volume 10.7 fl (6-9.5); Monocyte (Absolute #) 0.76 (0.0-1.3); Platelet Count 133 K/mm3 (150-450); Red Blood Count 3.12 M/mm3 (4.1-5.6); Red Cell Distribution Width 14.3 % (11.5-14.0); White Blood Count 5.8 K/mm3 (4.0-10.5)
[2017-05-18 06:27] LABS: ALBUMIN 2.8 g/dl (3.5-5.0); ALKALINE PHOSPHATASE 94 U/L (38-126); BLOOD UREA NITROGEN 6 mg/dl (9-20); CHLORIDE 103 mEq/L (98-107); Calcium 8.6 mg/dL (8.4-10.2); Carbon Dioxide 23 mmol/L (22-30); Creatinine 1 0.69 mg/dl (0.66-1.25); Glucose 100 mg/dL (74-106); Potassium 4.2 mmol/L (3.5-5.1); SGOT/AST 19 U/L (17-59); SGPT/ALT 25 U/L (0-50); SODIUM 135 mmol/L (137-145); Total Protein 5.3 mg/dl (6.3-8.2)
[2017-05-18 07:12] VITALS: BP 123/69; PULSE 84; O2SAT 95
--- NOTE | 2017-05-18 08:26 | PCM.DS ---
Discharge Summary Date of Admission: 05/16/17 09:48 Admitting Physician: JARON PIERRE Primary Care Provider: JARON PIERRE Allergies Allergies cephalexin monohydrate [From Keflex] Allergy (Verified 05/15/17 16:31) Itching miconazole nitrate [From Neosporin AF] Allergy (Verified 05/15/17 16:31) Itching Hospital Summary - Hospital Course Hospital Course: patient was admitted with fever about 1 week after having pancreatic stent removed, has felt well since admission. no fever during his entire stay, no complaints of pain. no nausea or vomiting, found to have pansensitive e coli in blood cultures 2/2. white count is normal, bp has been stable and patient will be sent home on levaquin - Vitals & Intake/Output Vital Signs: Vital Signs Temperature 98.7 F 05/18/17 07:10 Pulse Rate 84 05/18/17 07:10 Respiratory Rate 18 05/18/17 07:10 Blood Pressure 123/69 05/18/17 07:10 O2 Sat by Pulse Oximetry 95 05/18/17 07:10 Intake & Output: Intake & Output 05/15/17 05/16/17 05/17/17 05/18/17 11:59 11:59 11:59 12:59 Intake Total 4044 2993 Output Total 2700 2850 Balance 1344 143 Weight 80.1 kg 80.1 kg - Lab Result Diagrams: 05/18/17 05:59 05/18/17 05:59 Lab Results-Last 24 Hrs: Lab Results-Last 24 Hours 05/18/17 05/18/17 Range/Units 05:59 05:59 WBC 5.8 (4.0-10.5) K/mm3 RBC 3.12 L (4.1-5.6) M/mm3 Hgb 9.9 L (12.5-18.0) gm/dl Hct 29.6 L (42-50) % MCV 94.9 (78-100) fl MCH 31.7 (26-32) pg MCHC 33.4 (32-36) g/dl RDW 14.3 H (11.5-14.0) % Plt Count 133 L (150-450) K/mm3 MPV 10.7 H (6-9.5) fl Gran % 68.7 H (36.0-66.0) % Lymphocytes % 16.6 L (24.0-44.0) % Monocytes % 13.0 H (0.0-12.0) % Eosinophils % 1.4 (0.00-5.0) % Basophils % 0.3 (0.0-0.4) % Basophils # 0.02 (0-0.4) Sodium 135 L (137-145) mmol/L Potassium 4.2 (3.5-5.1) mmol/L Chloride 103 (98-107) mEq/L Carbon Dioxide 23 (22-30) mmol/L Anion Gap 13.0 (5-15) MEQ/L BUN 6 L (9-20) mg/dl Creatinine 0.69 (0.66-1.25) mg/dl Estimated GFR > 60 ML/MIN Glucose 100 (74-106) mg/dL Calcium 8.6 (8.4-10.2) mg/dL Total Bilirubin 0.70 (0.2-1.3) mg/d? AST 19 (17-59) U/L ALT 25 (0-50) U/L Alkaline Phosphatase 94 (38-126) U/L Serum Total Protein 5.3 L (6.3-8.2) mg/dl Albumin 2.8 L (3.5-5.0) g/dl Micro Results-Entire Visit: Microbiology 05/16/17 18:40 Blood Culture - Preliminary Blood NO GROWTH TO DATE 05/16/17 18:35 Blood Culture - Preliminary Blood NO GROWTH TO DATE - Procedures and Test Procedures and Tests throughout Hospitalization: Therapy Orders & Screens 05/16/17 12:15 EKG ROUTINE Comment: Diagnosis: fever, low sodium Discharge Exam General Appearance: no apparent distress, alert Skin Exam: normal color, warm, dry Respiratory Exam: normal breath sounds, lungs clear, No respiratory distress Cardiovascular Exam: regular rate/rhythm, normal heart sounds Gastrointestinal/Abdomen Exam: soft, No tenderness, No mass Extremity Exam: normal inspection, normal range of motion Final Diagnosis/Problem List - Final Discharge Diagnosis/Problem (1) Bacteremia Current Visit: No Status: Acute Assessment & Plan: home on po levaquin, f/u with Dr Pierre in a week. (2) Fever Current Visit: Yes Status: Acute - Discharge Disposition: Home, Self-Care Condition: Fair Prescriptions: New Levofloxacin [Levaquin] 500 mg PO DAILY #10 tablet Continue Potassium Chloride 10 meq PO UD Bumetanide 1 mg [Bumex 1 mg] 1 mg PO UD Carvedilol 6.25 mg [Coreg 6.25 MG] 12.5 mg PO BID Pantoprazole 40 mg [Protonix 40 mg IV] 40 mg PO DAILY Methotrexate Sodium [Methotrexate] 2.5 mg PO WEEKLY Folic Acid 1 mg PO DAILY Etanercept [Enbrel Sureclick] 50 mg SQ WEEKLY Aspirin [Aspirin EC] 81 mg PO DAILY Rivaroxaban [Xarelto] 20 mg PO DAILY Spironolactone 25 mg [Aldactone 25 MG] 25 mg PO DAILY Sacubitril/Valsartan [Entresto 24 mg-26 mg Tablet] 1 each PO BID Atorvastatin Calcium 40 mg PO DAILY Sildenafil Citrate [Viagra] 0 mg PO DAILY PRN PRN PRN Reason: ED Follow up with: JARON PIERRE [Primary Care Provider] - 1 Week
[2017-05-18] MEDS: Klor Con 10 MEQ PO SCH (09:15)
[2017-05-18] MEDS: Protonix 40MG Tablet PO SCH (09:15)
[2017-05-18] MEDS: ECOTRIN 81 MG PO SCH (09:15)
[2017-05-18] MEDS: XARELTO 10 MG TABLET PO SCH (09:15)
[2017-05-18] MEDS: FOLATE 1 MG PO SCH (09:15)
[2017-05-18] MEDS: ZOCOR 20MG PO SCH (09:15)
[2017-05-18] MEDS: Pepcid 20 MG VIAL IV SCH (09:16)
[2017-05-18] MEDS: Nystatin SUSPENSION 60 ML PO SCH (09:16)
[2017-05-19] MEDS ORDERED: PATIENT OWN MEDICATION SQ SCH (10:00)
[2017-05-22] MEDS ORDERED: TREXALL 2.5 MG PO SCH (10:00)
== END 2017-05-18 10:04 | disposition home or self-care (01) | DRG 872 ==
LOC: ED 15:52 → MED SURG 20:20 → OBSVTOIN 05-16 09:48
PROVIDERS: ADMIT Internal Medicine; ATTEND Internal Medicine
DX: R78.81 Bacteremia (principal); E87.1 Hypo-osmolality and hyponatremia; I42.0 Dilated cardiomyopathy; J44.9 Chronic obstructive pulmonary disease, unspecified; R50.9 Fever, unspecified; E78.00 Pure hypercholesterolemia, unspecified; M06.9 Rheumatoid arthritis, unspecified; F41.8 Other specified anxiety disorders; I10 Essential (primary) hypertension; Z98.61 Coronary angioplasty status; I25.5 Ischemic cardiomyopathy; E78.5 Hyperlipidemia, unspecified; I48.91 Unspecified atrial fibrillation; I73.9 Peripheral vascular disease, unspecified; Z79.01 Long term (current) use of anticoagulants; Z79.899 Other long term (current) drug therapy; I25.10 Atherosclerotic heart disease of native coronary artery without angina pectoris; I25.2 Old myocardial infarction; I50.9 Heart failure, unspecified; R63.4 Abnormal weight loss
CPT/HCPCS: 36000; 36415; 71046; 80048; 80053; 80076; 81000; 83540; 83550; 83605; 83690; 85025; 87040; 87077; 87086; 87186; 87631; 93005; 96360; 96361; 99285; G0378; J1956; A9270-GY

== ENCOUNTER 2020-11-23 12:16 | Observation (INO) | payer MEDICARE ==
[2020-11-23 12:30] LABS: A-aADO2 173; ABG HEMOGLOBIN 15.5; ABG POTASSIUM 3.8 (3.5-5.1); ABG SITE LEFT RADIAL; ALLEN TEST OK? YES; ARTERIAL BLD GAS O2 SATURATION 94.9 % (95-100); ARTERIAL BLOOD GAS BASE EXCESS -0.6 (-2.0-2.0); ARTERIAL BLOOD GAS FIO2 40 %; ARTERIAL BLOOD GAS PCO2 35 mmHg (35-45); ARTERIAL BLOOD GAS PO2 68 mmHg (75-100); ARTERIAL BLOOD GAS pH 7.43 (7.35-7.45); CARBOXYHEMOGLOBIN 1.3 % THgb (0.0-6.9); HCO3- 23.2 (22-28); HGB O2 SAT 92.8 g/dF (94-100)
[2020-11-23] MEDS ORDERED: DUONEB 0.5-3 MG/3 ml Neb IH ONE ×2 (12:32→13:05)
[2020-11-23] MEDS ORDERED: solu-MEDROL 125 MG, Sterile H2O 10 ml 2 ML IV ONE ×2 (12:32)
--- NOTE | 2020-11-23 12:39 | ERPHSYRPT ---
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 88% on RA, 95% on 5L. lung sounds clear and equal bilaterally. productive cough. denies pain other than when coughing. Physician History: 70 years old male with history of coronary artery disease status post stenting, peripheral vascular disease, hypertension, hyperlipidemia, COPD presented in the ER with chief complaint of worsening cough and shortness of breath since midnight. Patient reports coughing up clear to yellow phlegm mild in amount with chest tightness and pressure all over. Patient is hypoxic with sats around 88% on room air and currently on 5 L with sats 96%. Denies fever or chills. Vaccinated against COVID-19. Denies any chest pain or sick contact. Timing/Duration: yesterday, constant, gradual onset, worse Activities at Onset: rest Severity of Dyspnea-Max: severe Severity of Dyspnea-Current: severe Possible Cause: no prior episodes Modifying Factors: Worsens With: coughing, exertion Associated Symptoms: cough, wheezing, productive cough, tightness, No painful breathing Allergies/Adverse Reactions: cephalexin monohydrate [From Keflex] Allergy (Verified 11/23/20 12:31) Itching miconazole nitrate [From Neosporin AF] Allergy (Verified 11/23/20 12:31) Itching Home Medications: Bumetanide 1 mg [Bumex 1 mg] 1 mg PO UD 05/18/13 [History] Carvedilol 6.25 mg [Coreg 6.25 MG] 12.5 mg PO BID 05/18/13 [History] Pantoprazole 40 mg [Protonix 40 mg IV] 40 mg PO DAILY 05/18/13 [History] Potassium Chloride 10 meq PO UD 05/18/13 [History] Aspirin [Aspirin EC] 81 mg PO DAILY 01/31/16 [History] Etanercept [Enbrel Sureclick] 50 mg SQ WEEKLY 01/31/16 [History] Folic Acid 1 mg PO DAILY 01/31/16 [History] Methotrexate Sodium [Methotrexate] 2.5 mg PO WEEKLY 01/31/16 [History] Rivaroxaban [Xarelto] 20 mg PO DAILY 04/05/17 [History] Atorvastatin Calcium 40 mg PO DAILY 05/15/17 [History] Sacubitril/Valsartan [Entresto 24 mg-26 mg Tablet] 1 each PO BID 05/15/17 [History] Sildenafil Citrate [Viagra] 0 mg PO DAILY PRN PRN 05/15/17 [History] Spironolactone 25 mg [Aldactone 25 MG] 25 mg PO DAILY 05/15/17 [History] Hx Tetanus, Diphtheria Vaccination/Date Given: Yes Hx Influenza Vaccination/Date Given: Yes Hx Pneumococcal Vaccination/Date Given: Yes Immunizations Up to Date: Yes Travel Risk - International Travel Have you traveled outside of the country in past 3 weeks: No - Coronavirus Screening Are you exhibiting any of the following symptoms?: Yes Symptoms: Cough: New Onset, Shortness of Breath Close contact with a COVID-19 positive Pt in past 14-21 Days: No - Vaccine Status Have you recieved a Covid-19 vaccination: Yes Turnaround Planner: Moderna - Vaccination Dates Date of 2cond Vaccination (if applicable): may - Review of Systems Constitutional: No Symptoms Eyes: No Symptoms Ears, Nose, & Throat: No Symptoms Respiratory: Cough, Dyspnea, Wheezing Cardiac: No Symptoms Abdominal/Gastrointestinal: No Symptoms Genitourinary Symptoms: No Symptoms Musculoskeletal: No Symptoms Skin: No Symptoms Neurological: No Symptoms Psychological: No Symptoms Endocrine: No Symptoms Hematologic/Lymphatic: No Symptoms Immunological/Allergic: No Symptoms - Past Medical History Pertinent Past Medical History: Yes Neurological History: No Pertinent History ENT History: No Pertinent History Cardiac History: Arrhythmia, High Cholesterol, Hypertension, Myocardial Infarction (NM) Respiratory History: COPD, Other Endocrine Medical History: No Pertinent History Musculoskeletal History: Rheumatoid Arthritis GI Medical History: Pancreatitis History: No Pertinent History Psycho-Social History: Anxiety Male Reproductive Disorders: No Pertinent History Other Medical History: Amyloid. AICD. RA on methrotrexate. CAD post stenting - Past Surgical History Past Surgical History: Yes Neuro Surgical History: No Pertinent History Cardiac: Cardiac Catheterization, Cardiac Stent, Internal Defibrillator Respiratory: No Pertinent History Gastrointestinal: No Pertinent History Genitourinary: No Pertinent History Musculoskeletal: Other Male Surgical History: No Pertinent History Other Surgical History: FEM POP BYPASS - Social History Smoking Status: Former smoker Exposure to second hand smoke: No Drug Use: none Patient Lives Alone: No - Nursing Vital Signs Nursing Vital Signs: Initial Vital Signs Temperature 98.2 F 11/23/20 12:19 Pulse Rate 82 11/23/20 12:19 Respiratory Rate 20 11/23/20 12:19 Blood Pressure 175/92 11/23/20 12:19 O2 Sat by Pulse Oximetry 88 L 11/23/20 12:19 Pain Scale Pain Intensity 0 - Physical Exam General Appearance: no apparent distress, alert Eye Exam: PERRL/EOMI, eyes nml inspection Ears, Nose, Throat Exam: hearing grossly normal, pharyngeal erythema Neck Exam: normal inspection, non-tender, supple, full range of motion Respiratory Exam: respiratory distress, accessory muscle use, crackles/rales, rhonchi, wheezing Cardiovascular/Chest Exam: normal heart sounds, regular rate/rhythm Abdominal/Gastrointestinal Exam: soft, normal bowel sounds Extremity Exam: non-tender, normal range of motion Neurologic Exam: alert, oriented x 3, cooperative Skin Exam: normal color SpO2 Interpretation: hypoxic, O2 applied SpO2: 97 O2 Delivery: Nasal Cannula (5L) - Course EKG Interpreted by Me: RATE (100), Sinus Rhythm, Left [place] Deviation, Right Bundle Branch Block, Non-specific ST Changes Ordered Tests: Active Orders 24 hr Category Date Time Status Pearl Stringer STAT Care 11/23/20 12:33 Active EKG-ER Only STAT Care 11/23/20 12:32 Active IV Insertion STAT Care 11/23/20 12:32 Active Oxygen-ED Only Nasal Cannula 5 lpm Care 11/23/20 12:32 Active CHEST 1 VIEW (PORTABLE) Stat Exams 11/23/20 12:33 Completed ABG [ARTERIAL BLOOD GASES] Stat Lab 11/23/20 12:20 Completed BLOOD CULTURE Stat Lab 11/23/20 13:05 Received CBC W DIFF Stat Lab 11/23/20 12:32 Completed CMP Stat Lab 11/23/20 12:45 Completed Lactic Acid Stat Lab 11/23/20 12:32 Completed MAGNESIUM Stat Lab 11/23/20 12:45 Completed NT PRO BNP Stat Lab 11/23/20 12:45 Completed TROPONIN Q3H Lab 11/23/20 12:45 Completed TROPONIN Q3H Lab 11/23/20 16:00 Completed TROPONIN Q3H Lab 11/23/20 18:45 Ordered TROPONIN Q3H Lab 11/23/20 21:45 Ordered TROPONIN Q3H Lab 11/24/20 00:45 Ordered UA W/RFX UR CULTURE Stat Lab 11/23/20 14:45 Completed Flutter Therapy UD RT 11/23/20 14:36 Active Respiratory Therapy Assessment DAILY RT 11/23/20 14:35 Active Transfer Order Routine Transfer 11/23/20 Ordered Medication Summary Discontinued Medications Generic Name Dose Route Start Last Admin Trade Name Morgan PRN Reason Stop Dose Admin Albuterol/Ipratropium 3 ml 11/23/20 12:32 11/23/20 13:15 Duoneb 0.5-3 Mg/3 Ml Neb IH 11/23/20 12:33 3 ml STAT ONE Administration Albuterol/Ipratropium Confirm 11/23/20 13:05 Duoneb 0.5-3 Mg/3 Ml Neb Administered 11/23/20 13:06 Dose 3 ml IH .STK-MED ONE Methylprednisolone Sodium 0 mg 11/23/20 12:32 11/23/20 12:47 Succinate 125 mg/ Sterile IV 11/23/20 12:33 125 mg Water 2 ml STAT ONE Administration Levofloxacin/Dextrose 750 mg in 150 mls @ 100 mls/hr 11/23/20 13:22 11/23/20 15:43 Levofloxacin 750mg/150ml D5w IV 11/23/20 14:51 Infused STAT STA Infusion Sodium Chloride Confirm 11/23/20 13:52 Sodium Chloride 0.9% 1000 Ml Administered 11/23/20 13:53 Dose 1,000 mls @ ud .ROUTE .STK-MED ONE Levofloxacin/Dextrose Confirm 11/23/20 14:04 Levofloxacin 750mg/150ml D5w Administered 11/23/20 14:05 Dose 750 mg in 150 mls @ ud IV .STK-MED ONE Methylprednisolone Sodium Succinate Confirm 11/23/20 12:47 Solu-Medrol Administered 11/23/20 12:48 Dose 125 mg .ROUTE .STK-MED ONE Sterile Water Confirm 11/23/20 12:47 Sterile H2o 10 Ml Administered 11/23/20 12:48 Dose 10 ml IJ .STK-MED ONE Lab/Rad Data: Laboratory Result Diagrams 11/23/20 12:32 11/23/20 12:45 Laboratory Results 11/23/20 11/23/20 11/23/20 Range/Units 16:00 14:51 14:45 WBC (4.0-10.5) K/mm3 RBC (4.1-5.6) M/mm3 Hgb (12.5-18.0) gm/dl Hct (42-50) % MCV (78-100) fl MCH (26-32) pg MCHC (32-36) g/dl RDW (11.5-14.0) % Plt Count (150-450) K/mm3 MPV (7.5-11.0) fl Gran % (36.0-66.0) % Eos # (Auto) (0-0.5) Absolute Lymphs (auto) (1.0-4.6) Absolute Monos (auto) (0.0-1.3) Lymphocytes % (24.0-44.0) % Monocytes % (0.0-12.0) % Eosinophils % (0.00-5.0) % Basophils % (0.0-0.4) % Absolute Granulocytes (1.4-6.9) Basophils # (0-0.4) Puncture Site pCO2 (35-45) mmHg pO2 (75-100) mmHg Base Excess (-2.0-2.0) O2 Saturation (94-100) g/dF ABG pH (7.35-7.45) ABG HCO3 (22-28) ABG O2 Sat (Measured) (95-100) % Bryant Test A-a Gradient a/A Ratio Hemoglobin Carboxyhemoglobin (0.0-6.9) % THgb Methemoglobin (1.4-1.5) % Potassium (3.5-5.1) Temperature C POC O2 Flow Rate % Sodium (137-145) mmol/L Chloride (98-107) mmol/L Carbon Dioxide (22-30) mmol/L Anion Gap (5-15) MEQ/L BUN (9-20) mg/dL Creatinine (0.66-1.25) mg/dL Estimated GFR ML/MIN Glucose (74-106) mg/dL Lactic Acid (0.4-2.0) Calcium (8.4-10.2) mg/dL Magnesium (1.6-2.3) mg/dL Total Bilirubin (0.2-1.3) mg/dL AST (17-59) U/L ALT (0-50) U/L Alkaline Phosphatase (38-126) U/L Troponin I < 0.012 (0.000-0.034) ng/mL NT-Pro-B Natriuret Pep (0-900) pg/mL Serum Total Protein (6.3-8.2) g/dL Albumin (3.5-5.0) g/dL Urine Color YELLOW (YELLOW) Urine Appearance CLEAR (CLEAR) Urine pH 5.0 (5-6) Ur Specific [place] 1.020 (1.005-1.025) Urine Protein NEGATIVE (Negative) Urine Ketones TRACE (NEGATIVE) Urine Blood NEGATIVE (0-5) Bandar/ul Urine Nitrite NEGATIVE (NEGATIVE) Urine Bilirubin NEGATIVE (NEGATIVE) Urine Urobilinogen 2 (0-1) mg/dL Ur Leukocyte Esterase NEGATIVE (NEGATIVE) Urine WBC (Auto) NONE (0-5) /HPF Urine RBC (Auto) 0-2 (0-2) /HPF Urine Culture Reflexed NO (NO) Urine Glucose NEGATIVE (NEGATIVE) mg/dL SARS-CoV-2 (PCR) NEGATIVE (NEGATIVE) 11/23/20 11/23/20 11/23/20 Range/Units 12:45 12:45 12:32 WBC (4.0-10.5) K/mm3 RBC (4.1-5.6) M/mm3 Hgb (12.5-18.0) gm/dl Hct (42-50) % MCV (78-100) fl MCH (26-32) pg MCHC (32-36) g/dl RDW (11.5-14.0) % Plt Count (150-450) K/mm3 MPV (7.5-11.0) fl Gran % (36.0-66.0) % Eos # (Auto) (0-0.5) Absolute Lymphs (auto) (1.0-4.6) Absolute Monos (auto) (0.0-1.3) Lymphocytes % (24.0-44.0) % Monocytes % (0.0-12.0) % Eosinophils % (0.00-5.0) % Basophils % (0.0-0.4) % Absolute Granulocytes (1.4-6.9) Basophils # (0-0.4) Puncture Site pCO2 (35-45) mmHg pO2 (75-100) mmHg Base Excess (-2.0-2.0) O2 Saturation (94-100) g/dF ABG pH (7.35-7.45) ABG HCO3 (22-28) ABG O2 Sat (Measured) (95-100) % Bryant Test A-a Gradient a/A Ratio Hemoglobin Carboxyhemoglobin (0.0-6.9) % THgb Methemoglobin (1.4-1.5) % Potassium 4.2 (3.5-5.1) Temperature C POC O2 Flow Rate % Sodium 135 L (137-145) mmol/L Chloride 99 (98-107) mmol/L Carbon Dioxide 25 (22-30) mmol/L Anion Gap 15.6 H (5-15) MEQ/L BUN 14 (9-20) mg/dL Creatinine 0.90 (0.66-1.25) mg/dL Estimated GFR > 60.0 ML/MIN Glucose 121 H (74-106) mg/dL Lactic Acid 1.0 (0.4-2.0) Calcium 9.2 (8.4-10.2) mg/dL Magnesium 1.8 (1.6-2.3) mg/dL Total Bilirubin 2.10 H (0.2-1.3) mg/dL AST 43 (17-59) U/L ALT 25 (0-50) U/L Alkaline Phosphatase 101 (38-126) U/L Troponin I < 0.012 (0.000-0.034) ng/mL NT-Pro-B Natriuret Pep 417 (0-900) pg/mL Serum Total Protein 7.5 (6.3-8.2) g/dL Albumin 4.8 (3.5-5.0) g/dL Urine Color (YELLOW) Urine Appearance (CLEAR) Urine pH (5-6) Ur Specific [place] (1.005-1.025) Urine Protein (Negative) Urine Ketones (NEGATIVE) Urine Blood (0-5) Bandar/ul Urine Nitrite (NEGATIVE) Urine Bilirubin (NEGATIVE) Urine Urobilinogen (0-1) mg/dL Ur Leukocyte Esterase (NEGATIVE) Urine WBC (Auto) (0-5) /HPF Urine RBC (Auto) (0-2) /HPF Urine Culture Reflexed (NO) Urine Glucose (NEGATIVE) mg/dL SARS-CoV-2 (PCR) (NEGATIVE) 11/23/20 11/23/20 Range/Units 12:32 12:20 WBC 11.3 H (4.0-10.5) K/mm3 RBC 4.76 (4.1-5.6) M/mm3 Hgb 15.0 (12.5-18.0) gm/dl Hct 44.9 (42-50) % MCV 94.3 (78-100) fl MCH 31.5 (26-32) pg MCHC 33.4 (32-36) g/dl RDW 12.9 (11.5-14.0) % Plt Count 169 (150-450) K/mm3 MPV 10.1 (7.5-11.0) fl Gran % 81.3 H (36.0-66.0) % Eos # (Auto) 0.15 (0-0.5) Absolute Lymphs (auto) 1.10 (1.0-4.6) Absolute Monos (auto) 0.85 (0.0-1.3) Lymphocytes % 9.7 L (24.0-44.0) % Monocytes % 7.5 (0.0-12.0) % Eosinophils % 1.3 (0.00-5.0) % Basophils % 0.2 (0.0-0.4) % Absolute Granulocytes 9.21 H (1.4-6.9) Basophils # 0.02 (0-0.4) Puncture Site LEFT RADIAL pCO2 35 (35-45) mmHg pO2 68 L (75-100) mmHg Base Excess -0.6 (-2.0-2.0) O2 Saturation 92.8 L (94-100) g/dF ABG pH 7.43 (7.35-7.45) ABG HCO3 23.2 (22-28) ABG O2 Sat (Measured) 94.9 L (95-100) % Bryant Test YES A-a Gradient 173 a/A Ratio 0.28 Hemoglobin 15.5 Carboxyhemoglobin 1.3 (0.0-6.9) % THgb Methemoglobin 1.0 L (1.4-1.5) % Potassium 3.8 (3.5-5.1) Temperature 37.0 C POC O2 Flow Rate 40 % Sodium (137-145) mmol/L Chloride (98-107) mmol/L Carbon Dioxide (22-30) mmol/L Anion Gap (5-15) MEQ/L BUN (9-20) mg/dL Creatinine (0.66-1.25) mg/dL Estimated GFR ML/MIN Glucose (74-106) mg/dL Lactic Acid (0.4-2.0) Calcium (8.4-10.2) mg/dL Magnesium (1.6-2.3) mg/dL Total Bilirubin (0.2-1.3) mg/dL AST (17-59) U/L ALT (0-50) U/L Alkaline Phosphatase (38-126) U/L Troponin I (0.000-0.034) ng/mL NT-Pro-B Natriuret Pep (0-900) pg/mL Serum Total Protein (6.3-8.2) g/dL Albumin (3.5-5.0) g/dL Urine Color (YELLOW) Urine Appearance (CLEAR) Urine pH (5-6) Ur Specific [place] (1.005-1.025) Urine Protein (Negative) Urine Ketones (NEGATIVE) Urine Blood (0-5) Bandar/ul Urine Nitrite (NEGATIVE) Urine Bilirubin (NEGATIVE) Urine Urobilinogen (0-1) mg/dL Ur Leukocyte Esterase (NEGATIVE) Urine WBC (Auto) (0-5) /HPF Urine RBC (Auto) (0-2) /HPF Urine Culture Reflexed (NO) Urine Glucose (NEGATIVE) mg/dL SARS-CoV-2 (PCR) (NEGATIVE) - Progress Progress: improved Air Movement: fair Progress Note: 11/23/20 15:29 70 years old is evaluated for increasing shortness of breath and cough since . Patient was hypoxic and in distress on presentation with sats around 88%, placed on 5 L and is 95%. Given DuoNeb and Solu-Medrol, on reevaluation feeling much better. Has white count of 11, EKG did not show any acute negative troponins. Chest x-ray did not show any obvious pneumonic infiltrates. Given a dose of Levaquin as I believe patient is having COPD exacerbation with hypoxemia . Discussed with Dr. Beck and patient is accepted for admission. Blood Culture(s) Obtained: Yes Antibiotics given: Yes Discussed with : [place] Will see patient in: hospital (full admit) Counseled pt/family regarding: lab results, diagnosis, rad results - Departure Departure Disposition: Observation Clinical Impression: COPD exacerbation Respiratory failure Qualifiers: Chronicity: acute Respiratory failure complication: hypoxia Qualified Code(s): J96.01 - Acute respiratory failure with hypoxia Condition: Stable Critical Care Time: Yes Critical Care Time(excluding separately billable procedures): Critical 30-74 mins
[2020-11-23] MEDS ORDERED: Sterile H2O 10 ml IJ ONE (12:47)
[2020-11-23] MEDS ORDERED: solu-MEDROL ONE (12:47)
[2020-11-23 12:48] LABS: Absolute Neutrophil Ct (ANC) 9.21 (1.4-6.9); BASOPHIL % 0.2 % (0.0-0.4); Basophil (Absolute #) 0.02 (0-0.4); Eosinophil % 1.3 % (0.00-5.0); Eosinophil (Absolute #) 0.15 (0-0.5); Hematocrit 44.9 % (42-50); Lymphocytes % 9.7 % (24.0-44.0); Mean Cell Volume 94.3 fl (78-100); Mean Corpuscular Hemoglobin 31.5 pg (26-32); Mean Corpuscular Hgb Concent. 33.4 g/dl (32-36); Mean Platelet Volume 10.1 fl (7.5-11.0); Monocyte (Absolute #) 0.85 (0.0-1.3); Monocytes % 7.5 % (0.0-12.0); Neutrophil % 81.3 % (36.0-66.0); Platelet Count 169 K/mm3 (150-450); Red Blood Count 4.76 M/mm3 (4.1-5.6); Red Cell Distribution Width 12.9 % (11.5-14.0); White Blood Count 11.3 K/mm3 (4.0-10.5)
--- NOTE | 2020-11-23 13:02 | XRAY ---
Indication: Short of breath, chest pain, and congestion. Comparison: August 24, 2018. Portable chest remains hyperinflated and clear. Heart not enlarged again with left AICD. Bony thorax intact again with mild degenerative changes. Impression: Continued nonacute hyperinflated chest with chronic features.
[2020-11-23 13:16] LABS: ALBUMIN 4.8 g/dL (3.5-5.0); ALKALINE PHOSPHATASE 101 U/L (38-126); ANION GAP 15.6 MEQ/L (5-15); BLOOD UREA NITROGEN 14 mg/dL (9-20); CHLORIDE 99 mmol/L (98-107); Calcium 9.2 mg/dL (8.4-10.2); Carbon Dioxide 25 mmol/L (22-30); EST GLOMERULAR FILTRATION RATE > 60.0 ML/MIN; Glucose 121 mg/dL (74-106); MAGNESIUM 1.8 mg/dL (1.6-2.3); NT PRO BNP 417 pg/mL (0-900); Potassium 4.2 mmol/L (3.5-5.1); SGOT/AST 43 U/L (17-59); SGPT/ALT 25 U/L (0-50); SODIUM 135 mmol/L (137-145); Total Protein 7.5 g/dL (6.3-8.2)
[2020-11-23] MEDS ORDERED: LEVOFLOXACIN 750MG/150ML D5W 750 MG/150 ML BAG IV STA (13:22)
[2020-11-23] MEDS ORDERED: Sodium Chloride 0.9% 1000 ML 1,000 ML ONE (13:52)
[2020-11-23] MEDS ORDERED: LEVOFLOXACIN 750MG/150ML D5W 750 MG/150 ML BAG IV ONE (14:04)
[2020-11-23 15:01] LABS: Appearance CLEAR (CLEAR); Bilirubin NEGATIVE (NEGATIVE); Blood NEGATIVE Ery/ul (0-5); Glucose NEGATIVE (NEGATIVE); Ketones TRACE (NEGATIVE); Leukocyte Esterase NEGATIVE (NEGATIVE); Nitrite NEGATIVE (NEGATIVE); Protein,Urine Dip NEGATIVE (Negative); RBC 0-2 /HPF (0-2); Urobilinogen 2 mg/dL (0-1)
[2020-11-23] MEDS ORDERED: TYLENOL 325 MG PO PRN (16:52)
[2020-11-23] MEDS ORDERED: HUMALOG SQ PRN (16:52)
[2020-11-23] MEDS: solu-MEDROL 60 MG, Sterile H2O 10 ml 2 ML IV SCH ×4 (18:58→23:21)
[2020-11-23] MEDS ORDERED: Robitussin-Dm Syrup PO PRN (19:02)
[2020-11-23] MEDS ORDERED: CHLORASEPTIC SPRAY 180 ML PO PRN (19:02)
[2020-11-23] MEDS ORDERED: CEPACOL SORE THROAT LOZENGE PO PRN (19:04)
[2020-11-23] MEDS: DUONEB 0.5-3 MG/3 ml Neb IH SCH (20:10)
[2020-11-23] MEDS ORDERED: ECOTRIN 81 MG PO SCH (22:00)
[2020-11-23] MEDS ORDERED: COREG 12.5 MG PO SCH (22:00)
[2020-11-23] MEDS ORDERED: ENTRESTO 49 MG-51 MG TABLET PO SCH (22:00)
[2020-11-23] MEDS ORDERED: ZOCOR 20MG PO SCH (22:00)
[2020-11-24 01:49] LABS: Absolute Neutrophil Ct (ANC) 11.15 (1.4-6.9); Basophil (Absolute #) 0 (0-0.4); Eosinophil (Absolute #) 0 (0-0.5); Hematocrit 42.3 % (42-50); Hemoglobin 14.3 gm/dl (12.5-18.0); Lymphocyte (Absolute #) 0.61 (1.0-4.6); Lymphocytes % 5.1 % (24.0-44.0); Mean Cell Volume 93.8 fl (78-100); Mean Corpuscular Hemoglobin 31.7 pg (26-32); Mean Corpuscular Hgb Concent. 33.8 g/dl (32-36); Mean Platelet Volume 10.1 fl (7.5-11.0); Monocytes % 2.5 % (0.0-12.0); Neutrophil % 92.4 % (36.0-66.0); Platelet Count 152 K/mm3 (150-450); Red Blood Count 4.51 M/mm3 (4.1-5.6); Red Cell Distribution Width 12.6 % (11.5-14.0); White Blood Count 12.1 K/mm3 (4.0-10.5)
[2020-11-24 02:17] LABS: ALBUMIN 4.2 g/dL (3.5-5.0); ALKALINE PHOSPHATASE 68 U/L (38-126); ANION GAP 15.4 MEQ/L (5-15); BLOOD UREA NITROGEN 14 mg/dL (9-20); CHLORIDE 102 mmol/L (98-107); Calcium 9.2 mg/dL (8.4-10.2); Carbon Dioxide 22 mmol/L (22-30); Creatinine 1 0.82 mg/dL (0.66-1.25); EST GLOMERULAR FILTRATION RATE > 60.0 ML/MIN; Glucose 218 mg/dL (74-106); Potassium 3.9 mmol/L (3.5-5.1); SGOT/AST 35 U/L (17-59); SGPT/ALT 24 U/L (0-50); SODIUM 135 mmol/L (137-145); Total Protein 6.7 g/dL (6.3-8.2)
[2020-11-24] MEDS: DUONEB 0.5-3 MG/3 ml Neb IH SCH ×2 (02:19→07:10)
[2020-11-24] MEDS: solu-MEDROL 60 MG, Sterile H2O 10 ml 2 ML IV SCH ×2 (05:23)
[2020-11-24] MEDS ORDERED: NON-FORMULARY ITEM (Potassium Chloride [Potassium Chloride] 10 MEQ) PO SCH (07:15)
[2020-11-24 08:26] VITALS: BP 111/54; PULSE 75; O2SAT 92
--- NOTE | 2020-11-24 08:44 | PCM.SSS ---
History of Present Illness - Chief Complaint Chief Complaint: ACUTE HYPOXIC RESP FAILURE; COPD EXAC Date: 11/24/20 History of Present Illness: is a 70 year old male. Pt. presented to ER yesterday after noting a cough and generally not feeling well the night prior, upon presentation he was saturating at 88% on Room Air, pt. was given nebulizer and oxygen with steroids and began feeling better, remaining workup was negative with rapid onset of symptoms it was felt observation would benefit the patient. - Review of Systems Constitutional: No Fever, No Chills Eyes: No Symptoms Ears, Nose, & Throat: No Symptoms Respiratory: Cough, Short Of Breath, Wheezing Cardiac: No Chest Pain, No Edema, No Syncope Abdominal/Gastrointestinal: No Abdominal Pain, No Nausea, No Vomiting, No Diarrhea Genitourinary Symptoms: No Dysuria Musculoskeletal: No Back Pain, No Neck Pain Skin: No Rash Neurological: No Dizziness, No Focal Weakness, No Sensory Changes Psychological: No Symptoms Endocrine: No Symptoms Hematologic/Lymphatic: No Symptoms Immunological/Allergic: No Symptoms Medications & Allergies Home Medications: Home Medication List Bumetanide 1 mg [Bumex 1 mg] 1 mg PO UD 05/18/13 [History Confirmed 11/23/20] Carvedilol 6.25 mg [Coreg 6.25 MG] 12.5 mg PO BID 05/18/13 [History Confirmed 11/23/20] Pantoprazole 40 mg [Protonix 40 mg IV] 40 mg PO DAILY 05/18/13 [History Confirmed 11/23/20] Potassium Chloride 10 meq PO UD 05/18/13 [History Confirmed 11/23/20] Aspirin [Aspirin EC] 81 mg PO HS 01/31/16 [History Confirmed 11/23/20] Etanercept [Enbrel Sureclick] 50 mg SQ WEEKLY 01/31/16 [History Confirmed 11/23/20] Rivaroxaban [Xarelto] 20 mg PO DAILY 04/05/17 [History Confirmed 11/23/20] Atorvastatin Calcium 40 mg PO HS 05/15/17 [History Confirmed 11/23/20] Sacubitril/Valsartan [Entresto 24 mg-26 mg Tablet] 1 each PO BID 05/15/17 [ History Confirmed 11/23/20] Sildenafil Citrate [Viagra] 0 mg PO DAILY PRN PRN 05/15/17 [History Confirmed 11/23/20] Spironolactone 25 mg [Aldactone 25 MG] 12.5 mg PO UD 05/15/17 [History Confirmed 11/23/20] Albuterol 2.5 mg/3 ml Neb [Proventil 2.5 mg/3 ml Neb] 2.5 mg IH Q4-6HPRN PRN #1 11/24/20 [Rx] Albuterol Common Canister [Ventolin Common Canister] 2 - 4 puff IH Q4- 6HPRN PRN #1 11/24/20 [Rx] Levofloxacin [Levaquin] 500 mg PO DAILY 7 Days #7 tablet 11/24/20 [Rx] Methylprednisolone Packet [Medrol Dosepack] 4 mg PO UD #1 packet 11/24/20 [Rx] Nebulizer Accessories [Nebulizer] 1 each UD #1 kit 11/24/20 [Rx] Allergies/Adverse Reactions: Allergies Allergy/AdvReac Type Severity Reaction Status Date / Time bacitracin AdvReac Swelling Verified 11/23/20 17:24 [From Neosporin ([id number])] cephalexin monohydrate AdvReac Itching Verified 11/23/20 17:24 [From Keflex] neomycin AdvReac Swelling Verified 11/23/20 17:24 [From Neosporin ([id number])] polymyxin B AdvReac Swelling Verified 11/23/20 17:24 [From Neosporin ([id number])] - Past Medical History Past Medical History: Yes Neurological History: No Pertinent History ENT History: No Pertinent History Cardiac History: Arrhythmia, Coronary Artery Disease, High Cholesterol, Hypertension, Myocardial Infarction ([place]) Respiratory History: COPD, Other Endocrine Medical History: No Pertinent History Musculoskelatal History: Rheumatoid Arthritis GI Medical History: Gallbladder Disease, Pancreatitis History: No Pertinent History Pyscho-Social History: Anxiety Male Reproductive Disorders: No Pertinent History Comment: Amyloid. AICD. RA on methrotrexate. CAD post stenting - Past Surgical History Past Surgical History: Yes Neuro Surgical History: No Pertinent History Cardiac History: Cardiac Catheterization, Cardiac Stent, Internal Defibrillator Respiratory Surgery: No Pertinent History GI Surgical History: Cholecystectomy Genitourinary Surgical Hx: No Pertinent History Musculskeletal Surgical Hx: Other Male Surgical History: No Pertinent History Other Surgical History: FEM POP BYPASS - Social History Smoking Status: Former smoker Exposure to second hand smoke: No Alcohol: Rarely Drug Use: none - Physical Exam Vital Signs: Vital Signs - 24 hr Temp Pulse Resp BP Pulse Ox 11/24/20 08:00 96.9 F 75 17 111/54 92 L 11/24/20 07:52 82 16 96 11/24/20 04:00 97.9 F 79 20 104/59 92 L 11/24/20 02:19 79 20 92 L 11/23/20 23:39 98.5 F 76 18 129/72 94 L 11/23/20 20:13 98.3 F 89 20 133/61 96 11/23/20 20:10 91 H 20 93 L 11/23/20 18:00 98.7 F 83 18 146/73 93 L 11/23/20 16:52 97 11/23/20 16:21 88 22 134/71 95 11/23/20 15:22 86 24 122/67 97 11/23/20 14:36 100 H 18 96 11/23/20 14:31 96 H 18 125/67 97 11/23/20 12:19 98.2 F 82 29 H 175/92 97 General Appearance: no apparent distress, alert Neurologic Exam: alert, oriented x 3, cooperative, normal mood/affect, nml cerebellar function, nml station & gait, sensation nml, No motor deficits Eye Exam: PERRL/EOMI, eyes nml inspection Ears, Nose, Throat Exam: normal ENT inspection, moist mucous membranes Neck Exam: normal inspection, non-tender, supple, full range of motion Respiratory Exam: normal breath sounds, lungs clear, No respiratory distress Cardiovascular Exam: regular rate/rhythm, normal heart sounds, normal peripheral pulses Gastrointestinal/Abdomen Exam: soft, normal bowel sounds, No tenderness, No mass Back Exam: normal inspection, normal range of motion, No CVA tenderness, No vertebral tenderness Extremity Exam: normal inspection, normal range of motion, pelvis stable Skin Exam: normal color, warm, dry, No rash Lymphatic Exam: No adenopathy Results - Labs Lab/Micro Results: Lab Results-Last 24 Hours 11/23/20 11/23/20 11/23/20 Range/Units 12:20 12:32 12:32 WBC 11.3 H (4.0-10.5) K/mm3 RBC 4.76 (4.1-5.6) M/mm3 Hgb 15.0 (12.5-18.0) gm/dl Hct 44.9 (42-50) % MCV 94.3 (78-100) fl MCH 31.5 (26-32) pg MCHC 33.4 (32-36) g/dl RDW 12.9 (11.5-14.0) % Plt Count 169 (150-450) K/mm3 MPV 10.1 (7.5-11.0) fl Gran % 81.3 H (36.0-66.0) % Eos # (Auto) 0.15 (0-0.5) Absolute Lymphs (auto) 1.10 (1.0-4.6) Absolute Monos (auto) 0.85 (0.0-1.3) Lymphocytes % 9.7 L (24.0-44.0) % Monocytes % 7.5 (0.0-12.0) % Eosinophils % 1.3 (0.00-5.0) % Basophils % 0.2 (0.0-0.4) % Absolute Granulocytes 9.21 H (1.4-6.9) Basophils # 0.02 (0-0.4) Puncture Site LEFT RADIAL pCO2 35 (35-45) mmHg pO2 68 L (75-100) mmHg Base Excess -0.6 (-2.0-2.0) O2 Saturation 92.8 L (94-100) g/dF ABG pH 7.43 (7.35-7.45) ABG HCO3 23.2 (22-28) ABG O2 Sat (Measured) 94.9 L (95-100) % Bryant Test YES A-a Gradient 173 a/A Ratio 0.28 Hemoglobin 15.5 Carboxyhemoglobin 1.3 (0.0-6.9) % THgb Methemoglobin 1.0 L (1.4-1.5) % Potassium 3.8 (3.5-5.1) Temperature 37.0 C POC O2 Flow Rate 40 % Sodium (137-145) mmol/L Chloride (98-107) mmol/L Carbon Dioxide (22-30) mmol/L Anion Gap (5-15) MEQ/L BUN (9-20) mg/dL Creatinine (0.66-1.25) mg/dL Estimated GFR ML/MIN Glucose (74-106) mg/dL Lactic Acid 1.0 (0.4-2.0) Calcium (8.4-10.2) mg/dL Magnesium (1.6-2.3) mg/dL Total Bilirubin (0.2-1.3) mg/dL AST (17-59) U/L ALT (0-50) U/L Alkaline Phosphatase (38-126) U/L Troponin I (0.000-0.034) ng/mL NT-Pro-B Natriuret Pep (0-900) pg/mL Serum Total Protein (6.3-8.2) g/dL Albumin (3.5-5.0) g/dL Urine Color (YELLOW) Urine Appearance (CLEAR) Urine pH (5-6) Ur Specific [place] (1.005-1.025) Urine Protein (Negative) Urine Ketones (NEGATIVE) Urine Blood (0-5) Bandar/ul Urine Nitrite (NEGATIVE) Urine Bilirubin (NEGATIVE) Urine Urobilinogen (0-1) mg/dL Ur Leukocyte Esterase (NEGATIVE) Urine WBC (Auto) (0-5) /HPF Urine RBC (Auto) (0-2) /HPF Urine Culture Reflexed (NO) Urine Glucose (NEGATIVE) mg/dL SARS-CoV-2 (PCR) (NEGATIVE) 11/23/20 11/23/20 11/23/20 Range/Units 12:45 12:45 14:45 WBC (4.0-10.5) K/mm3 RBC (4.1-5.6) M/mm3 Hgb (12.5-18.0) gm/dl Hct (42-50) % MCV (78-100) fl MCH (26-32) pg MCHC (32-36) g/dl RDW (11.5-14.0) % Plt Count (150-450) K/mm3 MPV (7.5-11.0) fl Gran % (36.0-66.0) % Eos # (Auto) (0-0.5) Absolute Lymphs (auto) (1.0-4.6) Absolute Monos (auto) (0.0-1.3) Lymphocytes % (24.0-44.0) % Monocytes % (0.0-12.0) % Eosinophils % (0.00-5.0) % Basophils % (0.0-0.4) % Absolute Granulocytes (1.4-6.9) Basophils # (0-0.4) Puncture Site pCO2 (35-45) mmHg pO2 (75-100) mmHg Base Excess (-2.0-2.0) O2 Saturation (94-100) g/dF ABG pH (7.35-7.45) ABG HCO3 (22-28) ABG O2 Sat (Measured) (95-100) % Bryant Test A-a Gradient a/A Ratio Hemoglobin Carboxyhemoglobin (0.0-6.9) % THgb Methemoglobin (1.4-1.5) % Potassium 4.2 (3.5-5.1) Temperature C POC O2 Flow Rate % Sodium 135 L (137-145) mmol/L Chloride 99 (98-107) mmol/L Carbon Dioxide 25 (22-30) mmol/L Anion Gap 15.6 H (5-15) MEQ/L BUN 14 (9-20) mg/dL Creatinine 0.90 (0.66-1.25) mg/dL Estimated GFR > 60.0 ML/MIN Glucose 121 H (74-106) mg/dL Lactic Acid (0.4-2.0) Calcium 9.2 (8.4-10.2) mg/dL Magnesium 1.8 (1.6-2.3) mg/dL Total Bilirubin 2.10 H (0.2-1.3) mg/dL AST 43 (17-59) U/L ALT 25 (0-50) U/L Alkaline Phosphatase 101 (38-126) U/L Troponin I < 0.012 (0.000-0.034) ng/mL NT-Pro-B Natriuret Pep 417 (0-900) pg/mL Serum Total Protein 7.5 (6.3-8.2) g/dL Albumin 4.8 (3.5-5.0) g/dL Urine Color YELLOW (YELLOW) Urine Appearance CLEAR (CLEAR) Urine pH 5.0 (5-6) Ur Specific [place] 1.020 (1.005-1.025) Urine Protein NEGATIVE (Negative) Urine Ketones TRACE (NEGATIVE) Urine Blood NEGATIVE (0-5) Bandar/ul Urine Nitrite NEGATIVE (NEGATIVE) Urine Bilirubin NEGATIVE (NEGATIVE) Urine Urobilinogen 2 (0-1) mg/dL Ur Leukocyte Esterase NEGATIVE (NEGATIVE) Urine WBC (Auto) NONE (0-5) /HPF Urine RBC (Auto) 0-2 (0-2) /HPF Urine Culture Reflexed NO (NO) Urine Glucose NEGATIVE (NEGATIVE) mg/dL SARS-CoV-2 (PCR) (NEGATIVE) 11/23/20 11/23/20 11/23/20 Range/Units 14:51 16:00 18:36 WBC (4.0-10.5) K/mm3 RBC (4.1-5.6) M/mm3 Hgb (12.5-18.0) gm/dl Hct (42-50) % MCV (78-100) fl MCH (26-32) pg MCHC (32-36) g/dl RDW (11.5-14.0) % Plt Count (150-450) K/mm3 MPV (7.5-11.0) fl Gran % (36.0-66.0) % Eos # (Auto) (0-0.5) Absolute Lymphs (auto) (1.0-4.6) Absolute Monos (auto) (0.0-1.3) Lymphocytes % (24.0-44.0) % Monocytes % (0.0-12.0) % Eosinophils % (0.00-5.0) % Basophils % (0.0-0.4) % Absolute Granulocytes (1.4-6.9) Basophils # (0-0.4) Puncture Site pCO2 (35-45) mmHg pO2 (75-100) mmHg Base Excess (-2.0-2.0) O2 Saturation (94-100) g/dF ABG pH (7.35-7.45) ABG HCO3 (22-28) ABG O2 Sat (Measured) (95-100) % Bryant Test A-a Gradient a/A Ratio Hemoglobin Carboxyhemoglobin (0.0-6.9) % THgb Methemoglobin (1.4-1.5) % Potassium (3.5-5.1) Temperature C POC O2 Flow Rate % Sodium (137-145) mmol/L Chloride (98-107) mmol/L Carbon Dioxide (22-30) mmol/L Anion Gap (5-15) MEQ/L BUN (9-20) mg/dL Creatinine (0.66-1.25) mg/dL Estimated GFR ML/MIN Glucose (74-106) mg/dL Lactic Acid (0.4-2.0) Calcium (8.4-10.2) mg/dL Magnesium (1.6-2.3) mg/dL Total Bilirubin (0.2-1.3) mg/dL AST (17-59) U/L ALT (0-50) U/L Alkaline Phosphatase (38-126) U/L Troponin I < 0.012 < 0.012 (0.000-0.034) ng/mL NT-Pro-B Natriuret Pep (0-900) pg/mL Serum Total Protein (6.3-8.2) g/dL Albumin (3.5-5.0) g/dL Urine Color (YELLOW) Urine Appearance (CLEAR) Urine pH (5-6) Ur Specific [place] (1.005-1.025) Urine Protein (Negative) Urine Ketones (NEGATIVE) Urine Blood (0-5) Bandar/ul Urine Nitrite (NEGATIVE) Urine Bilirubin (NEGATIVE) Urine Urobilinogen (0-1) mg/dL Ur Leukocyte Esterase (NEGATIVE) Urine WBC (Auto) (0-5) /HPF Urine RBC (Auto) (0-2) /HPF Urine Culture Reflexed (NO) Urine Glucose (NEGATIVE) mg/dL SARS-CoV-2 (PCR) NEGATIVE (NEGATIVE) 11/23/20 11/24/20 11/24/20 Range/Units 21:44 01:45 01:45 WBC 12.1 H (4.0-10.5) K/mm3 RBC 4.51 (4.1-5.6) M/mm3 Hgb 14.3 (12.5-18.0) gm/dl Hct 42.3 (42-50) % MCV 93.8 (78-100) fl MCH 31.7 (26-32) pg MCHC 33.8 (32-36) g/dl RDW 12.6 (11.5-14.0) % Plt Count 152 (150-450) K/mm3 MPV 10.1 (7.5-11.0) fl Gran % 92.4 H (36.0-66.0) % Eos # (Auto) 0 (0-0.5) Absolute Lymphs (auto) 0.61 L (1.0-4.6) Absolute Monos (auto) 0.30 (0.0-1.3) Lymphocytes % 5.1 L (24.0-44.0) % Monocytes % 2.5 (0.0-12.0) % Eosinophils % 0.0 (0.00-5.0) % Basophils % 0.0 (0.0-0.4) % Absolute Granulocytes 11.15 H (1.4-6.9) Basophils # 0 (0-0.4) Puncture Site pCO2 (35-45) mmHg pO2 (75-100) mmHg Base Excess (-2.0-2.0) O2 Saturation (94-100) g/dF ABG pH (7.35-7.45) ABG HCO3 (22-28) ABG O2 Sat (Measured) (95-100) % Bryant Test A-a Gradient a/A Ratio Hemoglobin Carboxyhemoglobin (0.0-6.9) % THgb Methemoglobin (1.4-1.5) % Potassium (3.5-5.1) Temperature C POC O2 Flow Rate % Sodium (137-145) mmol/L Chloride (98-107) mmol/L Carbon Dioxide (22-30) mmol/L Anion Gap (5-15) MEQ/L BUN (9-20) mg/dL Creatinine (0.66-1.25) mg/dL Estimated GFR ML/MIN Glucose (74-106) mg/dL Lactic Acid (0.4-2.0) Calcium (8.4-10.2) mg/dL Magnesium (1.6-2.3) mg/dL Total Bilirubin (0.2-1.3) mg/dL AST (17-59) U/L ALT (0-50) U/L Alkaline Phosphatase (38-126) U/L Troponin I < 0.012 < 0.012 (0.000-0.034) ng/mL NT-Pro-B Natriuret Pep (0-900) pg/mL Serum Total Protein (6.3-8.2) g/dL Albumin (3.5-5.0) g/dL Urine Color (YELLOW) Urine Appearance (CLEAR) Urine pH (5-6) Ur Specific [place] (1.005-1.025) Urine Protein (Negative) Urine Ketones (NEGATIVE) Urine Blood (0-5) Bandar/ul Urine Nitrite (NEGATIVE) Urine Bilirubin (NEGATIVE) Urine Urobilinogen (0-1) mg/dL Ur Leukocyte Esterase (NEGATIVE) Urine WBC (Auto) (0-5) /HPF Urine RBC (Auto) (0-2) /HPF Urine Culture Reflexed (NO) Urine Glucose (NEGATIVE) mg/dL SARS-CoV-2 (PCR) (NEGATIVE) 11/24/20 Range/Units 01:45 WBC (4.0-10.5) K/mm3 RBC (4.1-5.6) M/mm3 Hgb (12.5-18.0) gm/dl Hct (42-50) % MCV (78-100) fl MCH (26-32) pg MCHC (32-36) g/dl RDW (11.5-14.0) % Plt Count (150-450) K/mm3 MPV (7.5-11.0) fl Gran % (36.0-66.0) % Eos # (Auto) (0-0.5) Absolute Lymphs (auto) (1.0-4.6) Absolute Monos (auto) (0.0-1.3) Lymphocytes % (24.0-44.0) % Monocytes % (0.0-12.0) % Eosinophils % (0.00-5.0) % Basophils % (0.0-0.4) % Absolute Granulocytes (1.4-6.9) Basophils # (0-0.4) Puncture Site pCO2 (35-45) mmHg pO2 (75-100) mmHg Base Excess (-2.0-2.0) O2 Saturation (94-100) g/dF ABG pH (7.35-7.45) ABG HCO3 (22-28) ABG O2 Sat (Measured) (95-100) % Bryant Test A-a Gradient a/A Ratio Hemoglobin Carboxyhemoglobin (0.0-6.9) % THgb Methemoglobin (1.4-1.5) % Potassium 3.9 (3.5-5.1) Temperature C POC O2 Flow Rate % Sodium 135 L (137-145) mmol/L Chloride 102 (98-107) mmol/L Carbon Dioxide 22 (22-30) mmol/L Anion Gap 15.4 H (5-15) MEQ/L BUN 14 (9-20) mg/dL Creatinine 0.82 (0.66-1.25) mg/dL Estimated GFR > 60.0 ML/MIN Glucose 218 H (74-106) mg/dL Lactic Acid (0.4-2.0) Calcium 9.2 (8.4-10.2) mg/dL Magnesium (1.6-2.3) mg/dL Total Bilirubin 1.10 (0.2-1.3) mg/dL AST 35 (17-59) U/L ALT 24 (0-50) U/L Alkaline Phosphatase 68 (38-126) U/L Troponin I (0.000-0.034) ng/mL NT-Pro-B Natriuret Pep (0-900) pg/mL Serum Total Protein 6.7 (6.3-8.2) g/dL Albumin 4.2 (3.5-5.0) g/dL Urine Color (YELLOW) Urine Appearance (CLEAR) Urine pH (5-6) Ur Specific [place] (1.005-1.025) Urine Protein (Negative) Urine Ketones (NEGATIVE) Urine Blood (0-5) Bandar/ul Urine Nitrite (NEGATIVE) Urine Bilirubin (NEGATIVE) Urine Urobilinogen (0-1) mg/dL Ur Leukocyte Esterase (NEGATIVE) Urine WBC (Auto) (0-5) /HPF Urine RBC (Auto) (0-2) /HPF Urine Culture Reflexed (NO) Urine Glucose (NEGATIVE) mg/dL SARS-CoV-2 (PCR) (NEGATIVE) - Radiology Impressions Radiology Exams & Impressions: Radiology Procedures Category Date Time Status CHEST 1 VIEW (PORTABLE) Stat Exams 11/23/20 12:33 Completed - Other Procedures and Tests Respiratory Therapy 11/23/20 16:52 Oxygen Nasal Cannula 4 lpm 11/23/20 20:17 Respiratory Therapy Assessment DAILY Assessment/Plan (1) COPD exacerbation Current Visit: Yes Status: Acute Code(s): J44.1 - CHRONIC OBSTRUCTIVE PULMONARY DISEASE W (ACUTE) EXACERBATION Hospital Summary - Hospital Course Hospital Course: Pt. admitted for iv antibiotics and iv steroids, his symptoms rapidly improved and by this morning was ready for discharge feeling he was back to his baseline. Pt. with clear lungs on auscultation this am. - Vitals & Intake/Output Vital Signs: Vital Signs Temperature 96.9 F 11/24/20 08:00 Pulse Rate 75 11/24/20 08:00 Respiratory Rate 17 11/24/20 08:00 Blood Pressure 111/54 11/24/20 08:00 O2 Sat by Pulse Oximetry 92 L 11/24/20 08:00 Intake & Output: Intake & Output 11/21/20 11/22/20 11/23/20 11/24/20 11:59 11:59 11:59 11:59 Intake Total 600 Output Total 900 Balance -300 Weight 90 kg - Lab Result Diagrams: 11/24/20 01:45 11/24/20 01:45 Lab Results-Last 24 Hrs: Lab Results-Last 24 Hours 11/23/20 11/23/20 11/23/20 Range/Units 12:20 12:32 12:32 WBC 11.3 H (4.0-10.5) K/mm3 RBC 4.76 (4.1-5.6) M/mm3 Hgb 15.0 (12.5-18.0) gm/dl Hct 44.9 (42-50) % MCV 94.3 (78-100) fl MCH 31.5 (26-32) pg MCHC 33.4 (32-36) g/dl RDW 12.9 (11.5-14.0) % Plt Count 169 (150-450) K/mm3 MPV 10.1 (7.5-11.0) fl Gran % 81.3 H (36.0-66.0) % Eos # (Auto) 0.15 (0-0.5) Absolute Lymphs (auto) 1.10 (1.0-4.6) Absolute Monos (auto) 0.85 (0.0-1.3) Lymphocytes % 9.7 L (24.0-44.0) % Monocytes % 7.5 (0.0-12.0) % Eosinophils % 1.3 (0.00-5.0) % Basophils % 0.2 (0.0-0.4) % Absolute Granulocytes 9.21 H (1.4-6.9) Basophils # 0.02 (0-0.4) Puncture Site LEFT RADIAL pCO2 35 (35-45) mmHg pO2 68 L (75-100) mmHg Base Excess -0.6 (-2.0-2.0) O2 Saturation 92.8 L (94-100) g/dF ABG pH 7.43 (7.35-7.45) ABG HCO3 23.2 (22-28) ABG O2 Sat (Measured) 94.9 L (95-100) % Bryant Test YES A-a Gradient 173 a/A Ratio 0.28 Hemoglobin 15.5 Carboxyhemoglobin 1.3 (0.0-6.9) % THgb Methemoglobin 1.0 L (1.4-1.5) % Potassium 3.8 (3.5-5.1) Temperature 37.0 C POC O2 Flow Rate 40 % Sodium (137-145) mmol/L Chloride (98-107) mmol/L Carbon Dioxide (22-30) mmol/L Anion Gap (5-15) MEQ/L BUN (9-20) mg/dL Creatinine (0.66-1.25) mg/dL Estimated GFR ML/MIN Glucose (74-106) mg/dL Lactic Acid 1.0 (0.4-2.0) Calcium (8.4-10.2) mg/dL Magnesium (1.6-2.3) mg/dL Total Bilirubin (0.2-1.3) mg/dL AST (17-59) U/L ALT (0-50) U/L Alkaline Phosphatase (38-126) U/L Troponin I (0.000-0.034) ng/mL NT-Pro-B Natriuret Pep (0-900) pg/mL Serum Total Protein (6.3-8.2) g/dL Albumin (3.5-5.0) g/dL Urine Color (YELLOW) Urine Appearance (CLEAR) Urine pH (5-6) Ur Specific [place] (1.005-1.025) Urine Protein (Negative) Urine Ketones (NEGATIVE) Urine Blood (0-5) Bandar/ul Urine Nitrite (NEGATIVE) Urine Bilirubin (NEGATIVE) Urine Urobilinogen (0-1) mg/dL Ur Leukocyte Esterase (NEGATIVE) Urine WBC (Auto) (0-5) /HPF Urine RBC (Auto) (0-2) /HPF Urine Culture Reflexed (NO) Urine Glucose (NEGATIVE) mg/dL SARS-CoV-2 (PCR) (NEGATIVE) 11/23/20 11/23/20 11/23/20 Range/Units 12:45 12:45 14:45 WBC (4.0-10.5) K/mm3 RBC (4.1-5.6) M/mm3 Hgb (12.5-18.0) gm/dl Hct (42-50) % MCV (78-100) fl MCH (26-32) pg MCHC (32-36) g/dl RDW (11.5-14.0) % Plt Count (150-450) K/mm3 MPV (7.5-11.0) fl Gran % (36.0-66.0) % Eos # (Auto) (0-0.5) Absolute Lymphs (auto) (1.0-4.6) Absolute Monos (auto) (0.0-1.3) Lymphocytes % (24.0-44.0) % Monocytes % (0.0-12.0) % Eosinophils % (0.00-5.0) % Basophils % (0.0-0.4) % Absolute Granulocytes (1.4-6.9) Basophils # (0-0.4) Puncture Site pCO2 (35-45) mmHg pO2 (75-100) mmHg Base Excess (-2.0-2.0) O2 Saturation (94-100) g/dF ABG pH (7.35-7.45) ABG HCO3 (22-28) ABG O2 Sat (Measured) (95-100) % Bryant Test A-a Gradient a/A Ratio Hemoglobin Carboxyhemoglobin (0.0-6.9) % THgb Methemoglobin (1.4-1.5) % Potassium 4.2 (3.5-5.1) Temperature C POC O2 Flow Rate % Sodium 135 L (137-145) mmol/L Chloride 99 (98-107) mmol/L Carbon Dioxide 25 (22-30) mmol/L Anion Gap 15.6 H (5-15) MEQ/L BUN 14 (9-20) mg/dL Creatinine 0.90 (0.66-1.25) mg/dL Estimated GFR > 60.0 ML/MIN Glucose 121 H (74-106) mg/dL Lactic Acid (0.4-2.0) Calcium 9.2 (8.4-10.2) mg/dL Magnesium 1.8 (1.6-2.3) mg/dL Total Bilirubin 2.10 H (0.2-1.3) mg/dL AST 43 (17-59) U/L ALT 25 (0-50) U/L Alkaline Phosphatase 101 (38-126) U/L Troponin I < 0.012 (0.000-0.034) ng/mL NT-Pro-B Natriuret Pep 417 (0-900) pg/mL Serum Total Protein 7.5 (6.3-8.2) g/dL Albumin 4.8 (3.5-5.0) g/dL Urine Color YELLOW (YELLOW) Urine Appearance CLEAR (CLEAR) Urine pH 5.0 (5-6) Ur Specific [place] 1.020 (1.005-1.025) Urine Protein NEGATIVE (Negative) Urine Ketones TRACE (NEGATIVE) Urine Blood NEGATIVE (0-5) Bandar/ul Urine Nitrite NEGATIVE (NEGATIVE) Urine Bilirubin NEGATIVE (NEGATIVE) Urine Urobilinogen 2 (0-1) mg/dL Ur Leukocyte Esterase NEGATIVE (NEGATIVE) Urine WBC (Auto) NONE (0-5) /HPF Urine RBC (Auto) 0-2 (0-2) /HPF Urine Culture Reflexed NO (NO) Urine Glucose NEGATIVE (NEGATIVE) mg/dL SARS-CoV-2 (PCR) (NEGATIVE) 11/23/20 11/23/20 11/23/20 Range/Units 14:51 16:00 18:36 WBC (4.0-10.5) K/mm3 RBC (4.1-5.6) M/mm3 Hgb (12.5-18.0) gm/dl Hct (42-50) % MCV (78-100) fl MCH (26-32) pg MCHC (32-36) g/dl RDW (11.5-14.0) % Plt Count (150-450) K/mm3 MPV (7.5-11.0) fl Gran % (36.0-66.0) % Eos # (Auto) (0-0.5) Absolute Lymphs (auto) (1.0-4.6) Absolute Monos (auto) (0.0-1.3) Lymphocytes % (24.0-44.0) % Monocytes % (0.0-12.0) % Eosinophils % (0.00-5.0) % Basophils % (0.0-0.4) % Absolute Granulocytes (1.4-6.9) Basophils # (0-0.4) Puncture Site pCO2 (35-45) mmHg pO2 (75-100) mmHg Base Excess (-2.0-2.0) O2 Saturation (94-100) g/dF ABG pH (7.35-7.45) ABG HCO3 (22-28) ABG O2 Sat (Measured) (95-100) % Bryant Test A-a Gradient a/A Ratio Hemoglobin Carboxyhemoglobin (0.0-6.9) % THgb Methemoglobin (1.4-1.5) % Potassium (3.5-5.1) Temperature C POC O2 Flow Rate % Sodium (137-145) mmol/L Chloride (98-107) mmol/L Carbon Dioxide (22-30) mmol/L Anion Gap (5-15) MEQ/L BUN (9-20) mg/dL Creatinine (0.66-1.25) mg/dL Estimated GFR ML/MIN Glucose (74-106) mg/dL Lactic Acid (0.4-2.0) Calcium (8.4-10.2) mg/dL Magnesium (1.6-2.3) mg/dL Total Bilirubin (0.2-1.3) mg/dL AST (17-59) U/L ALT (0-50) U/L Alkaline Phosphatase (38-126) U/L Troponin I < 0.012 < 0.012 (0.000-0.034) ng/mL NT-Pro-B Natriuret Pep (0-900) pg/mL Serum Total Protein (6.3-8.2) g/dL Albumin (3.5-5.0) g/dL Urine Color (YELLOW) Urine Appearance (CLEAR) Urine pH (5-6) Ur Specific [place] (1.005-1.025) Urine Protein (Negative) Urine Ketones (NEGATIVE) Urine Blood (0-5) Bandar/ul Urine Nitrite (NEGATIVE) Urine Bilirubin (NEGATIVE) Urine Urobilinogen (0-1) mg/dL Ur Leukocyte Esterase (NEGATIVE) Urine WBC (Auto) (0-5) /HPF Urine RBC (Auto) (0-2) /HPF Urine Culture Reflexed (NO) Urine Glucose (NEGATIVE) mg/dL SARS-CoV-2 (PCR) NEGATIVE (NEGATIVE) 11/23/20 11/24/20 11/24/20 Range/Units 21:44 01:45 01:45 WBC 12.1 H (4.0-10.5) K/mm3 RBC 4.51 (4.1-5.6) M/mm3 Hgb 14.3 (12.5-18.0) gm/dl Hct 42.3 (42-50) % MCV 93.8 (78-100) fl MCH 31.7 (26-32) pg MCHC 33.8 (32-36) g/dl RDW 12.6 (11.5-14.0) % Plt Count 152 (150-450) K/mm3 MPV 10.1 (7.5-11.0) fl Gran % 92.4 H (36.0-66.0) % Eos # (Auto) 0 (0-0.5) Absolute Lymphs (auto) 0.61 L (1.0-4.6) Absolute Monos (auto) 0.30 (0.0-1.3) Lymphocytes % 5.1 L (24.0-44.0) % Monocytes % 2.5 (0.0-12.0) % Eosinophils % 0.0 (0.00-5.0) % Basophils % 0.0 (0.0-0.4) % Absolute Granulocytes 11.15 H (1.4-6.9) Basophils # 0 (0-0.4) Puncture Site pCO2 (35-45) mmHg pO2 (75-100) mmHg Base Excess (-2.0-2.0) O2 Saturation (94-100) g/dF ABG pH (7.35-7.45) ABG HCO3 (22-28) ABG O2 Sat (Measured) (95-100) % Bryant Test A-a Gradient a/A Ratio Hemoglobin Carboxyhemoglobin (0.0-6.9) % THgb Methemoglobin (1.4-1.5) % Potassium (3.5-5.1) Temperature C POC O2 Flow Rate % Sodium (137-145) mmol/L Chloride (98-107) mmol/L Carbon Dioxide (22-30) mmol/L Anion Gap (5-15) MEQ/L BUN (9-20) mg/dL Creatinine (0.66-1.25) mg/dL Estimated GFR ML/MIN Glucose (74-106) mg/dL Lactic Acid (0.4-2.0) Calcium (8.4-10.2) mg/dL Magnesium (1.6-2.3) mg/dL Total Bilirubin (0.2-1.3) mg/dL AST (17-59) U/L ALT (0-50) U/L Alkaline Phosphatase (38-126) U/L Troponin I < 0.012 < 0.012 (0.000-0.034) ng/mL NT-Pro-B Natriuret Pep (0-900) pg/mL Serum Total Protein (6.3-8.2) g/dL Albumin (3.5-5.0) g/dL Urine Color (YELLOW) Urine Appearance (CLEAR) Urine pH (5-6) Ur Specific [place] (1.005-1.025) Urine Protein (Negative) Urine Ketones (NEGATIVE) Urine Blood (0-5) Bandar/ul Urine Nitrite (NEGATIVE) Urine Bilirubin (NEGATIVE) Urine Urobilinogen (0-1) mg/dL Ur Leukocyte Esterase (NEGATIVE) Urine WBC (Auto) (0-5) /HPF Urine RBC (Auto) (0-2) /HPF Urine Culture Reflexed (NO) Urine Glucose (NEGATIVE) mg/dL SARS-CoV-2 (PCR) (NEGATIVE) 11/24/20 Range/Units 01:45 WBC (4.0-10.5) K/mm3 RBC (4.1-5.6) M/mm3 Hgb (12.5-18.0) gm/dl Hct (42-50) % MCV (78-100) fl MCH (26-32) pg MCHC (32-36) g/dl RDW (11.5-14.0) % Plt Count (150-450) K/mm3 MPV (7.5-11.0) fl Gran % (36.0-66.0) % Eos # (Auto) (0-0.5) Absolute Lymphs (auto) (1.0-4.6) Absolute Monos (auto) (0.0-1.3) Lymphocytes % (24.0-44.0) % Monocytes % (0.0-12.0) % Eosinophils % (0.00-5.0) % Basophils % (0.0-0.4) % Absolute Granulocytes (1.4-6.9) Basophils # (0-0.4) Puncture Site pCO2 (35-45) mmHg pO2 (75-100) mmHg Base Excess (-2.0-2.0) O2 Saturation (94-100) g/dF ABG pH (7.35-7.45) ABG HCO3 (22-28) ABG O2 Sat (Measured) (95-100) % Bryant Test A-a Gradient a/A Ratio Hemoglobin Carboxyhemoglobin (0.0-6.9) % THgb Methemoglobin (1.4-1.5) % Potassium 3.9 (3.5-5.1) Temperature C POC O2 Flow Rate % Sodium 135 L (137-145) mmol/L Chloride 102 (98-107) mmol/L Carbon Dioxide 22 (22-30) mmol/L Anion Gap 15.4 H (5-15) MEQ/L BUN 14 (9-20) mg/dL Creatinine 0.82 (0.66-1.25) mg/dL Estimated GFR > 60.0 ML/MIN Glucose 218 H (74-106) mg/dL Lactic Acid (0.4-2.0) Calcium 9.2 (8.4-10.2) mg/dL Magnesium (1.6-2.3) mg/dL Total Bilirubin 1.10 (0.2-1.3) mg/dL AST 35 (17-59) U/L ALT 24 (0-50) U/L Alkaline Phosphatase 68 (38-126) U/L Troponin I (0.000-0.034) ng/mL NT-Pro-B Natriuret Pep (0-900) pg/mL Serum Total Protein 6.7 (6.3-8.2) g/dL Albumin 4.2 (3.5-5.0) g/dL Urine Color (YELLOW) Urine Appearance (CLEAR) Urine pH (5-6) Ur Specific [place] (1.005-1.025) Urine Protein (Negative) Urine Ketones (NEGATIVE) Urine Blood (0-5) Bandar/ul Urine Nitrite (NEGATIVE) Urine Bilirubin (NEGATIVE) Urine Urobilinogen (0-1) mg/dL Ur Leukocyte Esterase (NEGATIVE) Urine WBC (Auto) (0-5) /HPF Urine RBC (Auto) (0-2) /HPF Urine Culture Reflexed (NO) Urine Glucose (NEGATIVE) mg/dL SARS-CoV-2 (PCR) (NEGATIVE) - Radiology Exams Ordered Rad Exams-Entire Visit: Radiology Procedures Category Date Time Status CHEST 1 VIEW (PORTABLE) Stat Exams 11/23/20 12:33 Completed - Procedures and Test Procedures and Tests throughout Hospitalization: Therapy Orders & Screens 11/23/20 14:35 Respiratory Therapy Assessment DAILY Comment: 11/23/20 14:36 Flutter Therapy UD Comment: 11/23/20 16:52 Oxygen Nasal Cannula 4 lpm Comment: 11/23/20 20:17 Respiratory Therapy Assessment DAILY Comment: Diagnosis: ACUTE HYPOXIC RESP FAILURE; COPD EXAC - Discharge Discharge Date: 11/24/20 Disposition: Home, Self-Care Condition: Stable Prescriptions: New Levofloxacin [Levaquin] 500 mg PO DAILY 7 Days #7 tablet Methylprednisolone Packet [Medrol Dosepack] 4 mg PO UD #1 packet Nebulizer Accessories [Nebulizer] 1 each UD #1 kit Albuterol 2.5 mg/3 ml Neb [Proventil 2.5 mg/3 ml Neb] 2.5 mg IH Q4- 6HPRN PRN #1 PRN Reason: Shortness Of Breath/Wheezing Albuterol Common Canister [Ventolin Common Canister] 2 - 4 puff IH Q4- 6HPRN PRN #1 PRN Reason: Shortness Of Breath/Wheezing Continue Potassium Chloride 10 meq PO UD Bumetanide 1 mg [Bumex 1 mg] 1 mg PO UD Carvedilol 6.25 mg [Coreg 6.25 MG] 12.5 mg PO BID Pantoprazole 40 mg [Protonix 40 mg IV] 40 mg PO DAILY Etanercept [Enbrel Sureclick] 50 mg SQ WEEKLY Aspirin [Aspirin EC] 81 mg PO HS Rivaroxaban [Xarelto] 20 mg PO DAILY Spironolactone 25 mg [Aldactone 25 MG] 12.5 mg PO UD Sacubitril/Valsartan [Entresto 24 mg-26 mg Tablet] 1 each PO BID Atorvastatin Calcium 40 mg PO HS Sildenafil Citrate [Viagra] 0 mg PO DAILY PRN PRN PRN Reason: ED Follow up with: JARON PIERRE [Primary Care Provider] -
[2020-11-24] MEDS ORDERED: Levofloxacin 500MG/100ML D5W 500 MG/100 ML BAG IV SCH (10:00)
[2020-11-24] MEDS ORDERED: XARELTO 10 MG TABLET PO SCH ×2 (10:00→18:00)
[2020-11-24] MEDS ORDERED: Klor Con 10 MEQ PO SCH (10:00)
[2020-11-24] MEDS ORDERED: Aldactone 25 MG PO SCH (10:00)
[2020-11-24] MEDS ORDERED: BUMEX 1 MG PO SCH (10:00)
[2020-11-24] MEDS ORDERED: PROTONIX 40 MG IV IV SCH (10:00)
== END 2020-11-24 10:25 | disposition home or self-care (01) ==
LOC: ED 12:16 → MED SURG 16:45
PROVIDERS: ADMIT Family Medicine; ATTEND Family Medicine
DX: J44.1 Chronic obstructive pulmonary disease with (acute) exacerbation (principal); J96.01 Acute respiratory failure with hypoxia; I10 Essential (primary) hypertension; E78.5 Hyperlipidemia, unspecified; Z79.899 Other long term (current) drug therapy; E78.00 Pure hypercholesterolemia, unspecified; I25.10 Atherosclerotic heart disease of native coronary artery without angina pectoris; Z20.822 Contact with and (suspected) exposure to COVID-19
CPT/HCPCS: 36000; 36415; 36600; 71045; 80053; 81001; 82375; 82803; 83605; 83735; 83880; 84484; 85025; 87040; 93005; 93041; 93268; 94640; 94667; 94760; 96360; 96374; 99285; 99291; G0378; U0003; J1956; J2930; A9270-GY